=== PATIENT | female | born 1935 | race Caucasian/White ===

== ENCOUNTER 2020-06-28 04:58 | Outpatient (CLI) | payer MEDICARE, OTHER | END 2020-06-28 04:59 | disposition critical access hospital (66) | LOC: EMS 04:58 | PROVIDERS: ATTEND Emergency Medicine | DX: M79.604 Pain in right leg (principal); R22.41 Localized swelling, mass and lump, right lower limb | CPT/HCPCS: A0425; A0429 ==

== ENCOUNTER 2020-06-28 05:14 | Inpatient (IN) | payer MEDICARE, OTHER ==
--- NOTE | 2020-06-28 05:35 | ED Physician Documentation ---
History of Present Illness - Stated complaint Stated Complaint: R LEG SWELLING - Chief complaint Chief Complaint: Ext Problem - History obtained from History obtained from: EMS - History of Present Illness Timing: Today - Additonal information Additional information: HARMAN from [facility]. Patient has dementia and is thus unable to contribute to HPI/ROS. Per staff at [facility], patient was noted to be in NAD at approximately 1 AM on routine check which included turning patient. At approximately 4 AM this morning, she was again checked on as per routine and found to have swelling of RLE and pain with movement. There was no report of recent injury or fall. Review of Systems Unable to obtain: Dementia PD PAST MEDICAL HISTORY - Past Medical History Past Medical History: Yes Neuro: Dementia - Present Medications Home Medications: Ambulatory Orders Medication Instructions Recorded Confirmed Donepezil HCl [Aricept] 10 mg PO HS 06/28/20 06/28/20 Furosemide [Lasix] 40 mg PO DAILY 06/28/20 06/28/20 OLANZapine [Zyprexa] 2.5 mg PO HS 06/28/20 06/28/20 Oxybutynin Chloride [Ditropan Xl] 10 mg PO 06/28/20 Oxybutynin Chloride [Ditropan Xl] 10 mg PO DAILY 06/28/20 06/28/20 Potassium Chloride 20 meq PO 06/28/20 - Allergies Allergies/Adverse Reactions: Allergies Allergy/AdvReac Type Severity Reaction Status Date / Time No Known Drug Allergies Allergy Verified 06/28/20 05:39 PD ED PE NORMAL - Vitals Vital signs reviewed: Yes - General General: No acute distress (NAD at rest, obvious painful distress with RLE exam (palpation; the limb is not moved during exam)), Well developed/nourished, Other (awake, alert, confused; answers are gibberish. ) - HEENT HEENT: Atraumatic - Cardiac Cardiac: RRR, No murmur - Respiratory Respiratory: No respiratory distress, Clear bilaterally - Abdomen Abdomen: Soft, Non tender - Derm Derm: Normal color, Warm and dry PD ED PE EXPANDED - Extremities Extremities: Pedal Pulses Present, Other (entire RLE from hip to toes is circumferentially swollen. the RLE is foreshortened and externally rotated. there is no erythema nor abnormal warmth/coolness to touch. obvious painful distress with palpation of proximal thigh) Results - Vitals Vitals: Vital Signs - 24 hr 06/28/20 06/28/20 05:24 08:39 Temperature 36.4 C L 36.4 C L Heart Rate 71 71 Respiratory 18 18 Rate Blood Pressure 198/140 H 198/140 H O2 Saturation 100 100 Oxygen O2 Source Room air - Labs Labs: Laboratory Tests 06/28/20 06/28/20 06:12 06:12 WBC 10.0 RBC 4.54 Hgb 12.8 Hct 39.1 MCV 86.1 MCH 28.2 MCHC 32.7 RDW 14.6 Plt Count 234 MPV 9.1 Neut # (Auto) 7.7 H Lymph # (Auto) 1.4 L Sampson # (Auto) 0.7 Eos # (Auto) 0.1 Baso # (Auto) 0.0 Absolute Nucleated RBC 0.00 Nucleated RBC % 0.0 Sodium 137 Potassium 3.2 L Chloride 101 Carbon Dioxide 26 Anion Gap 10.0 BUN 16 Creatinine 0.5 Estimated GFR (MDRD) 117 Glucose 130 H Calcium 8.8 Total Bilirubin 0.8 AST 18 ALT 14 Alkaline Phosphatase 99 Total Protein 6.8 Albumin 3.8 Globulin 3.0 Albumin/Globulin Ratio 1.3 Lipase 32 PD MEDICAL DECISION MAKING - ED course Complexity details: reviewed results, re-evaluated patient, considered differential ED course: right proximal femoral fracure with 100 % displacement and 45 degree angulation on xrays. orthopedic surgeon consulted (Dr. Vera); he subsequently evaluated patient in ED and contacted POA. He requests hospitalist for admission. D/W Dr. Sparks, will admit to hospitalist service Departure - Departure Disposition: [facility] DC/Xfer Clinical Impression: Right femoral fracture Qualifiers: Encounter type: initial encounter Femur location: shaft Fracture type: closed Fracture morphology: spiral Fracture alignment: displaced Qualified Code(s): S72.341A - Displaced spiral fracture of shaft of right femur, initial encounter for closed fracture Condition: Stable
[2020-06-28 06:14] LABS: BASOPHILS % (AUTO) 0.3 %; EOSINOPHILS # (AUTO) 0.1 10^3/uL (0.0-0.7); EOSINOPHILS % (AUTO) 0.8 %; HGB - HEMOGLOBIN 12.8 g/dL (12.0-16.0); LYMPHOCYTES # (AUTO) 1.4 10^3/uL (1.5-3.5); LYMPHOCYTES % (AUTO) 14.2 %; MEAN CORPUSCULAR HEMOGLOBIN 28.2 pg (27.0-31.0); MEAN CORPUSCULAR HGB CONC 32.7 g/dL (32.0-36.0); MEAN CORPUSCULAR VOLUME 86.1 fL (81.0-99.0); MEAN PLATELET VOLUME 9.1 fL (7.9-10.8); MONOCYTES # (AUTO) 0.7 10^3/uL (0.0-1.0); MONOCYTES % (AUTO) 6.7 %; NEUTROPHILS # (AUTO) 7.7 10^3/uL (1.5-6.6); NEUTROPHILS % (AUTO) 77.7 %; PLT - PLATELET COUNT 234 10^3/uL (130-450); RED BLOOD COUNT 4.54 10^6/uL (4.20-5.40); RED CELL DISTRIBUTION WIDTH 14.6 % (12.0-15.0)
[2020-06-28 06:27] LABS: ALBUMIN 3.8 g/dL (3.2-5.5); ALBUMIN/GLOBULIN RATIO 1.3 (1.0-2.2); BILIRUBIN,TOTAL 0.8 mg/dL (0.2-1.0); CALCIUM 8.8 mg/dL (8.5-10.3); CREATININE 0.5 mg/dL (0.4-1.0); TOTAL PROTEIN 6.8 g/dL (6.7-8.2)
[2020-06-28] MEDS ORDERED: MORPHINE 2 MG/ML CARPUJECT IVP STA ×2 (07:45→08:46)
--- NOTE | 2020-06-28 08:12 | XRAY Report ---
PROCEDURE: Hip w/Pelvis 2-3V RT INDICATIONS: RLE swelling, pain, tenderness TECHNIQUE: AP pelvis with lateral view(s) of the bilateral hip(s). COMPARISON: None. FINDINGS: Bones: No dislocations. Pelvic ring appears intact. No suspicious bony lesions. Note is made of a diagonal fracture of the proximal diaphysis of the right femur. Soft tissues: The visualized bowel g as pattern is normal. No suspicious soft tissue calcifications. IMPRESSION: Right femur fracture along the diaphysis, diagonal, proximally. No additional trauma fou nd. Moderately severe left hip joint osteoarthritis noted. Reviewed by: Daron Whittaker MD on 06/28/2020 8:11 AM PST Approved by: Daron Whittaker MD on 06/28/2020 8:11 AM PST Station ID: [id number]
--- NOTE | 2020-06-28 08:34 | SURGERY HX AND PHYSICAL(T) ---
Surgical History & Physical - Chief Complaint/HPI Chief Complaint: Right leg deformity History of Present Illness: Mrs. Coyle is a 85 yo female with dementia and polio who was found down with a right leg deformity. No other issue. 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 Urinary: Incontinence Musculoskeletal: None Blood Disorders: None Psychiatric: None Smoking Status: Unknown if ever smoked - Home Meds and Allergies Home Medications: Donepezil HCl [Aricept] 10 mg PO HS 06/28/20 Furosemide [Lasix] 40 mg PO DAILY 06/28/20 OLANZapine [Zyprexa] 2.5 mg PO HS 06/28/20 Oxybutynin Chloride [Ditropan Xl] 10 mg PO 06/28/20 Oxybutynin Chloride [Ditropan Xl] 10 mg PO DAILY 06/28/20 Potassium Chloride 20 meq PO 06/28/20 Allergies/Adverse Reactions: Allergies Allergy/AdvReac Type Severity Reaction Status Date / Time No Known Drug Allergies Allergy Verified 06/28/20 05:39 - Vital Signs Heart Rate: 71 Blood Pressure: 198/140 Temperature: 36.4 C Respiratory Rate: 18 O2 Saturation: 100 Weight (kg): 54.431 kg Height: 5 ft 5 in - Physical Exam General Appearance: positive: Anxious Eyes Bilatera: positive: Normal inspection ENT: positive: ENT inspection nml Neck: positive: Nml inspection Respiratory: positive: Breath sounds nml Cardiovascular: positive: Regular rate & rhythm Peripheral Pulses: positive: 2+ Abdomen: positive: Non-tender Skin: positive: Color nml Extremities: positive: Other (Right leg- short, externally rotated, skin intact, 2+ pulses) Neurologic/Psychiatric: positive: Disoriented to person, Disoriented to place, Disoriented to time - Patient Review Patient Review: Problems were reviewed with the patient during this visit. Medications were reviewed with the patient during this visit. Allergies were reviewed this patient during this visit. Pertinent Tests Reviewed: All pertitent test for this patient were reviewed. - Assessment & Plan Assessment and Plan: Right femoral fracture Plan To OR today for IM nail. Consent obtained from POA. Risks and benefits explained which include nonunion, malunion, hardware failure, rotational deformity.
[2020-06-28] MEDS ORDERED: hydrALAZINE INJ 20 MG/ML VIAL IVP PRN (10:30)
[2020-06-28] MEDS ORDERED: ONDANSETRON 4 MG/2 ML VIAL IVP PRN ×3 (10:32→18:40)
[2020-06-28] MEDS ORDERED: MORPHINE 2 MG/ML CARPUJECT IVP PRN ×3 (10:32→18:40)
[2020-06-28] MEDS ORDERED: oxyCODONE 5 MG TABLET PO PRN ×2 (10:32→18:40)
[2020-06-28] MEDS ORDERED: SODIUM CHLORIDE FLUSH 0.9% 10 ML SYRINGE IVP PRN ×2 (10:32→18:40)
[2020-06-28] MEDS ORDERED: ACETAMINOPHEN 325 MG TABLET PO PRN ×2 (10:32→18:40)
--- NOTE | 2020-06-28 10:40 | HISTORY & PHYSICAL EXAMINATION ---
Chief Complaint - Chief Complaint Chief Complaint: fall History of Present Illness - Admitted From Admitted From:: s/p surgery - [facility] obtained from: ER report and [employer] Exam Limitations: pt could not provide any medical hx due to her dementia - History of Present Illness HPI Comment/Other: This is a 85-year-old female with past medical history significant for dementia, urinary incontinence, she is living at [facility] in [place].Per ER report, Unfortunately patient could not provide any H&P due to her advanced dementia. Per ER report, staff in [facility] reported patient was noted to be no abnormality detected at approximately 1 AM on routine check by [facility] staff. At approximately 4 AM this morning, patient was again checked as per routine, pt was found to have swelling of right lower extremity, and pain by right leg movement. There was no report for recent injury or fall. Patient's routine laboratory test show patient had potassium 3.2 Otherwise unremarkable. In ER, Patient is afebrile, patient initially had hypertension, now her blood pressure become controlled. Pt was directly from ER to operation room. Medical team was consulted for medical management of S/P of right hip repair. New PLOST show DNR/DNI with Limited intervention. History - Past Medical History Cardiovascular: reports: None Respiratory: reports: None Neuro: reports: Dementia Endocrine/Autoimmune: reports: None GI: reports: None CIRCULATION DIRECTOR: reports: None : reports: Incontinence HEENT: reports: None Psych: reports: None Musculoskeletal: reports: None Derm: reports: None MRSA Hx?: No - Family & Social History Family History Comment/Other: Patient has history of advanced dementia, she could not provide family and social history - POLST Patient has POLST: Yes Meds/Allgy - Home Medications Home Medications: Ambulatory Orders Medication Instructions Recorded Confirmed Albuterol Sulf [Ventolin Hfa 2 puffs INH Q4H PRN 06/28/20 Inhaler] Donepezil HCl [Aricept] 10 mg PO HS 06/28/20 06/28/20 Furosemide [Lasix] 40 mg PO DAILY 06/28/20 06/28/20 OLANZapine [Zyprexa] 2.5 mg PO HS 06/28/20 06/28/20 Oxybutynin Chloride [Ditropan Xl] 10 mg PO DAILY 06/28/20 Oxybutynin Chloride [Ditropan Xl] 10 mg PO DAILY 06/28/20 06/28/20 Potassium Chloride 40 meq PO DAILY 06/28/20 - Allergies Allergies/Adverse Reactions: Allergies Allergy/AdvReac Type Severity Reaction Status Date / Time No Known Drug Allergies Allergy Verified 06/28/20 05:39 Review of Systems - Other Findings Other Findings: Patient has history of advanced dementia, she could not answer ROS Prior Level of Functionality: Patient has history of advanced dementia, pt is living at [facility] Exam - Vital Signs Vital Signs: Vital Signs x48h Temp Pulse Resp BP Pulse Ox 06/28/20 10:20 90 18 178/75 H 100 06/28/20 08:39 36.4 C L 71 18 198/140 H 100 06/28/20 05:24 36.4 C L 71 18 198/140 H 100 - Physical Exam General Appearance: positive: No acute distress, Alert. negative: Lethargic Eyes Bilateral: positive: Normal inspection, PERRL, No lid inflammation ENT: positive: ENT inspection nml, No signs of dehydration. negative: Purulent nasal drainage Neck: positive: Nml inspection, Trachea midline. negative: Thyromegaly, Tracheal deviation Respiratory: positive: Chest non-tender, No respiratory distress. negative: Wheezes, Rales Cardiovascular: positive: Regular rate & rhythm, No murmur. negative: Tachycardia, Bradycardia, Systolic murmur, Diastolic murmur Peripheral Pulses: positive: 2+ Abdomen: positive: Non-tender, Nml bowel sounds, No distention. negative: Tenderness, Guarding, Rebound Back: positive: Nml inspection Skin: positive: Color nml, Warm, Dry. negative: Cyanosis, Diaphoresis, Pallor Extremities: positive: Nml appearance. negative: Calf tenderness Neurologic/Psychiatric: positive: Sensation nml. negative: Weakness, Sensory loss, Facial droop, Slurred/abnml speech Conclusion/Plan - Problem List (1) Right femoral fracture Conclusion/Plan: pt was directly from ER to operation room. pt is for Status post of right hip repair medical management in medical floor, DVT prophylaxis per surgeon, Continue pain control, PT and OT evaluation and treatment, Consult with social work for safety disposition, will check H&H to monitor HGB Qualifiers: Encounter type: initial encounter Femur location: shaft Fracture type: closed Fracture morphology: spiral Fracture alignment: displaced Qualified Code(s): S72.341A - Displaced spiral fracture of shaft of right femur, initial encounter for closed fracture (2) Dementia Conclusion/Plan: will resume home meds Aricept, and yprexa, continue nurse care and support, feed pt as needed (3) Urinary incontinence Conclusion/Plan: continue Justin today, then D/C Justin on tomorrow, continue nurse and staff care (4) HTN (hypertension) Conclusion/Plan: Patient show hypertension in admission, now her blood pressure is in the control, we will add hydralazine IV as needed (5) Hypokalemia Conclusion/Plan: pt's potassium is 3.2, will replace, and lab monitor - Lab Results Fish Bones: 06/29/20 04:44 06/29/20 04:44 Core Measures - Anticipated LOS I expect patient to be DC'd or transferred within 96 hours.: Yes - DVT/VTE - Prophylaxis VTE/DVT Device ordered at admit?: Yes VTE/DVT Prophylaxis med ordered at admit?: Yes - Stroke - Rehab Assessment Rehab services assessment to be ordered?: Yes - AMI - Statin at Admit Aspirin Prescribed on Admit: Yes
[2020-06-28] MEDS ORDERED: SODIUM CHLORIDE 0.9% 1,000 ML IV SCH (11:00)
--- NOTE | 2020-06-28 11:02 | OPERATIVE REPORT ---
Operative Report - General Admit Date: 06/28/20 Planned Procedure: Right femoral intramedullary nail Pre-Op Diagnosis: Right proximal femur spiral fracture Procedure Performed: Right femoral cephalomedullary nail - Procedure Note Primary Surgeon: Denny Vera M.D. Secondary Surgeon: Juan Carlos Oconnell PA-C Anesthesia Technique: General mask Pathology: none Estimated Blood Loss (mL): 200 Urine Output (mL): 100 Indications: femur fracure Findings: femur fracture Complications: None - Other Other Information/Narrative: Hip Fracture Indications Agnes Greenfield is a 86 y.o. female who fell at her custodial and immediately experienced pain in the right leg. She was brought to the ER, where physical examination and x-rays documented a right proximal femur fracture. After discussion with the patient and family the patient was admitted and prepared for IM nail of their fracture. Disposition The patient was taken to PACU in good condition. [employer] long femoral nail 11X40, 85/80 lag screws Procedure The patient was seen in the Holding area. The risks, benefits, complications, treatment options, and expected outcomes were reviewed with the family The risks and potential complications of their problem and purposed treatment include but are not limited to infection, nerve injury, vascular injury, persistent pain, potential skin necrosis, deep vein thrombosis, possible pulmonary embolus, complications of the anesthetics, and failure of the implant. The family concurred with the proposed plan. The site of surgery was properly noted/marked and confirmed with the family. The patient was taken to the operating room. In the operating room anesthesia was administered. The patient received 2 grams of IV Ancef as a pre-operative antibiotic. A Justin catheter was already placed. The patient was then placed on the Anita fracture table and the proximal hip fracture was reduced under fluoroscopy. SCD's were placed on the contralateral leg to reduce the risk of DVT. The operative hip and leg were then prepped and draped in a sterile fashion. A Time Out was held and the patient identified as Shazia Coyle and the procedure verified as Right IM nail of Proximal Femur Fracture. Through a lateral skin incision, the fracture was identified and reduced with a bone clamp under fluoro. Through a posterior lateral skin incision, the trochanteric entry point was identified.An starting pin was then placed appropiately under fluoroscopic guidance up to the lesser trochanter. The starting reamer was then placed up to the lesser trochanter. The ball tip guide wire was then tapped further through the fracture site to the physis of the knee. Stepped reamers enlarged the femoral canal up to 13 mm. We measured for the length of the nail. We were able to reduce the fracture and placed the nail without difficulty. We locked the nail with two proximal cephalomedullary lag screws and two distal locking screws. Reduction of the fracture and screw placement were all confirmed by fluoroscopy and noted to be in good position. SHe had osteoportic bone The wound was then copiously irrigated. Hemostasis was obtained using the Bovie cautery.Closure was performed with an interrupted 2-0 Vicryl and the skin was approximated with with blake. A sterile dressing was applied and the patient was transferred to PACU. Instrument, sponge, and needle counts were correct prior to closure and at the conclusion of the case. Due to the complexity of fracture and osteoporosis, a PA was needed throught out the case to hold instruments and reduce fracture. Without his help, operative time and surgical complexity would increase.
[2020-06-28 11:14] LABS: C. PNEUMONIAE- RESP PCR PANEL NOT DETECTED
--- NOTE | 2020-06-28 11:39 | ANESTHESIA ---
Pre-Anesthesia VS, & Labs - Diagnosis right hip fracture - Procedure ORIF right hip Vital Signs: Temp Pulse Resp BP Pulse Ox 36.4 C L 90 18 178/75 H 100 06/28/20 08:39 06/28/20 10:20 06/28/20 10:20 06/28/20 10:20 06/28/20 10:20 Height: 5 ft 5 in Weight (kg): 54.431 kg Body Mass Index: 20.0 BMI Classification: Healthy weight - NPO >8 hours - Is Patient ?: No - Lab Results Current Lab Results: Laboratory Tests 06/28/20 10:44: Troponin I High Sens 3.6 06/28/20 06:12: Sodium 137, Potassium 3.2 L, Chloride 101, Carbon Dioxide 26, Anion Gap 10.0, BUN 16, Creatinine 0.5, Estimated GFR (MDRD) 117, Glucose 130 H, Calcium 8.8, Total Bilirubin 0.8, AST 18, ALT 14, Alkaline Phosphatase 99, Total Protein 6.8, Albumin 3.8, Globulin 3.0, Albumin/Globulin Ratio 1.3, Lipase 32 06/28/20 06:12: WBC 10.0, RBC 4.54, Hgb 12.8, Hct 39.1, MCV 86.1, MCH 28.2, MCHC 32.7, RDW 14.6, Plt Count 234, MPV 9.1, Neut # (Auto) 7.7 H, Lymph # (Auto) 1.4 L, [place] # (Auto) 0.7, Eos # (Auto) 0.1, Baso # (Auto) 0.0, Absolute Nucleated RBC 0.00, Nucleated RBC % 0.0 Lab results reviewed: Yes Fish Bones: 06/28/20 06:12 06/28/20 06:12 Home Medications and Allergies Home Medications: Ambulatory Orders Albuterol Sulf [Ventolin Hfa Inhaler] 2 puffs INH Q4H PRN 06/28/20 Donepezil HCl [Aricept] 10 mg PO HS 06/28/20 Furosemide [Lasix] 40 mg PO DAILY 06/28/20 OLANZapine [Zyprexa] 2.5 mg PO HS 06/28/20 Oxybutynin Chloride [Ditropan Xl] 10 mg PO DAILY 06/28/20 Oxybutynin Chloride [Ditropan Xl] 10 mg PO DAILY 06/28/20 Potassium Chloride 40 meq PO DAILY 06/28/20 Active Medications Acetaminophen (Acetaminophen 325 Mg Tablet) 650 mg PO Q4HR PRN PRN Reason: Pain 1 to 4 Enoxaparin Sodium (Enoxaparin 40 Mg/0.4 Ml Syringe) 40 mg SUBQ DAILY [facility] Famotidine (Famotidine 20 Mg Tablet) 20 mg PO BID [facility] Furosemide (Furosemide 40 Mg Tablet) 40 mg PO DAILY [facility] Hydralazine HCl (Hydralazine Inj 20 Mg/Ml Vial) 10 mg IVP Q4H PRN PRN Reason: Hypertensive Emergency Potassium Chloride (Potassium Chloride) 10 meq in 100 mls @ 100 mls/hr IV Q1H [facility] Stop: 06/28/20 14:59 Sodium Chloride (Normal Saline 0.9%) 1,000 mls @ 100 mls/hr IV .Q10H [facility] Morphine Sulfate (Morphine 2 Mg/Ml Carpuject) 2 mg IVP Q2HR PRN PRN Reason: Pain 8 to 10 Non-Formulary Medication (Donepezil Hcl [Aricept]) 10 mg PO HS [facility] Non-Formulary Medication (Olanzapine [Zyprexa]) 2.5 mg PO HS [facility] Non-Formulary Medication (Oxybutynin Chloride [Ditropan Xl]) 10 mg PO DAILY [facility] Ondansetron HCl (Ondansetron 4 Mg/2 Ml Vial) 4 mg IVP Q6HR PRN PRN Reason: Nausea / Vomiting Oxycodone HCl (Oxycodone 5 Mg Tablet) 5 mg PO Q4HR PRN PRN Reason: Pain 5 to 7 Sodium Chloride (Sodium Chloride Flush 0.9% 10 Ml Syringe) 10 ml IVP PRN PRN PRN Reason: NEEDED PER PROVIDER ORDERS Sodium Chloride (Sodium Chloride Flush 0.9% 10 Ml Syringe) 10 ml IVP 0100,0900,1700 [facility] Albuterol Sulf [Ventolin Hfa Inhaler] 2 puffs INH Q4H PRN 06/28/20 Donepezil HCl [Aricept] 10 mg PO HS 06/28/20 Furosemide [Lasix] 40 mg PO DAILY 06/28/20 OLANZapine [Zyprexa] 2.5 mg PO HS 06/28/20 Oxybutynin Chloride [Ditropan Xl] 10 mg PO DAILY 06/28/20 Oxybutynin Chloride [Ditropan Xl] 10 mg PO DAILY 06/28/20 Potassium Chloride 40 meq PO DAILY 06/28/20 Allergies/Adverse Reactions: Allergies Allergy/AdvReac Type Severity Reaction Status Date / Time No Known Drug Allergies Allergy Verified 06/28/20 05:39 Anes History & Medical History - Anesthetic History Anesthesia Complications: reports: No previous complications - Medical History Cardiovascular: reports: None Pulmonary: reports: None Gastrointestinal: reports: None Urinary: reports: Incontinence Neuro: reports: Dementia Musculoskeletal: reports: None Endocrine/Autoimmune: reports: None Blood Disorders: reports: None Skin: reports: None Smoking Status: Unknown if ever smoked - Surgical History Cardiothoracic: Angioplasty (about 10 years ago per daughter) Exam General: Alert Dental: WNL Mallampati classification: II Thyromental Distance: greater than 6 cm Respiratory: Lungs clear Cardiovascular: Regular rate Plan Anesthesia Type: General, Fascia Iliaca Block Consent for Procedure(s) Verified and Reviewed: Yes Code Status: Attempt Resuscitation ASA classification: 2-Mild systemic disease Is this case an emergency?: Yes (urgent)
[2020-06-28] MEDS ORDERED: MIDAZOLAM 2 MG/2 ML VIAL ONE (14:11)
[2020-06-28] MEDS ORDERED: LIDOCAINE-MPF 2% 5 ML VIAL ONE (14:11)
[2020-06-28] MEDS ORDERED: PROPOFOL 200 MG/20 ML VIAL IVP ONE (14:11)
[2020-06-28] MEDS ORDERED: fentaNYL 100 MCG/2 ML VIAL ONE (14:11)
[2020-06-28] MEDS ORDERED: ROPIVACAINE 0.5% PF 20 ML AMPULE ONE (14:26)
[2020-06-28] MEDS ORDERED: ceFAZolin 1 GM VIAL ONE (15:45)
[2020-06-28] MEDS ORDERED: SODIUM CHLORIDE 0.9% 10 ML ONE (15:45)
[2020-06-28] MEDS ORDERED: ePHEDrine 50 MG/ML VIAL IVP ONE (16:16)
[2020-06-28] MEDS ORDERED: PHENYLEPHRINE 10 MG/ML VIAL ONE (16:24)
[2020-06-28] MEDS ORDERED: NALOXONE 0.4 MG/ML VIAL IVP PRN (16:56)
[2020-06-28] MEDS ORDERED: ePHEDrine 50 MG/ML VIAL IVP PRN (16:56)
[2020-06-28] MEDS ORDERED: HYDROmorphone 0.5 MG/0.5 ML SYRINGE IVP PRN (16:56)
[2020-06-28] MEDS ORDERED: ATROPINE ABBOJECT 1 MG/10 ML SYRINGE IVP PRN (16:56)
[2020-06-28] MEDS ORDERED: METOCLOPRAMIDE 10 MG/2 ML VIAL IVP PRN (16:56)
[2020-06-28] MEDS ORDERED: fentaNYL 100 MCG/2 ML VIAL IVP PRN (16:56)
[2020-06-28] MEDS ORDERED: LACTATED RINGERS 1,000 ML IV SCH (17:00)
[2020-06-28] MEDS ORDERED: SEVOFLURANE 250 ML LIQUID INH ONE (17:44)
[2020-06-28] MEDS ORDERED: DOCUSATE SODIUM 100 MG CAPSULE PO PRN (18:40)
[2020-06-28] MEDS ORDERED: PROCHLORPERAZINE 10 MG/2 ML VIAL IVP PRN (18:40)
[2020-06-28] MEDS ORDERED: LACTATED RINGERS 1,000 ML IV ONE (18:51)
[2020-06-28] MEDS: LACTATED RINGERS 1,000 ML IV SCH (19:58)
[2020-06-28] MEDS: SODIUM CHLORIDE FLUSH 0.9% 10 ML SYRINGE IVP SCH (19:58)
--- NOTE | 2020-06-28 20:06 | ANESTHESIA POST OP EVALUATION ---
Anesthesia Post Eval - Post Anesthesia Eval Vitals: Last Vital Signs Temp 36.7 C 06/28/20 19:37 Pulse 92 06/28/20 19:37 Resp 16 06/28/20 19:37 BP 105/54 L 06/28/20 19:37 Pulse Ox 100 06/28/20 19:37 CV Function Including HR & BP: positive: Stable Pain Control: positive: Satisfactory Nausea & Vomiting: positive: Negative Mental Status: positive: Patient Participates Respiratory Status: Airway Patent Hydration Status: Satisfactory Anesthesia Complications: positive: None
[2020-06-28] MEDS ORDERED: OLANZapine ODT 5 MG TABLET TL SCH (21:00)
[2020-06-28] MEDS ORDERED: DONEPEZIL 5 MG TABLET PO SCH (21:00)
--- NOTE | 2020-06-28 21:35 | XRAY Report ---
PROCEDURE: OR C-Arm Procedure INDICATIONS: ORIF RIGHT HIP TECHNIQUE: Multiple intraoperative spot fluoroscopic images of the right femur were obtained in vario us projections. COMPARISON: None. FINDINGS: Spot fluoroscopic images of the right femur demonstrate fixation of the previously seen proximal femo ral diaphyseal fracture with an intramedullary nail. IMPRESSION: Intraoperative images demonstrate internal fixation of the previously seen proximal femoral fracture. Reviewed by: Medardo Sebastian MD on 06/28/2020 9:34 PM [facility] Approved by: Medardo Sebastian MD on 06/28/2020 9:34 PM [facility] Station ID: [id number]
[2020-06-28] MEDS: POTASSIUM CHLOR 10 MEQ/100 ML 10 MEQ/100 ML BAG IV SCH (21:48)
[2020-06-28] MEDS: FAMOTIDINE 20 MG TABLET PO SCH (21:48)
[2020-06-28] MEDS: ceFAZolin 2 GM/50 ML 2 GM/50 ML BAG IV SCH (21:53)
[2020-06-28 22:00] LABS: HGB - HEMOGLOBIN 11.7 g/dL (12.0-16.0)
[2020-06-29] MEDS: SODIUM CHLORIDE FLUSH 0.9% 10 ML SYRINGE IVP SCH ×3 (00:04→17:08)
[2020-06-29] MEDS ORDERED: SODIUM CHLORIDE FLUSH 0.9% 10 ML SYRINGE IVP SCH (01:00)
[2020-06-29 05:40] LABS: BASOPHILS % (AUTO) 0.4 %; EOSINOPHILS # (AUTO) 0.2 10^3/uL (0.0-0.7); EOSINOPHILS % (AUTO) 2.4 %; HGB - HEMOGLOBIN 10.1 g/dL (12.0-16.0); LYMPHOCYTES # (AUTO) 1.5 10^3/uL (1.5-3.5); LYMPHOCYTES % (AUTO) 22.8 %; MEAN CORPUSCULAR HEMOGLOBIN 28.1 pg (27.0-31.0); MEAN CORPUSCULAR HGB CONC 32.5 g/dL (32.0-36.0); MEAN CORPUSCULAR VOLUME 86.4 fL (81.0-99.0); MEAN PLATELET VOLUME 9.7 fL (7.9-10.8); MONOCYTES # (AUTO) 1.1 10^3/uL (0.0-1.0); MONOCYTES % (AUTO) 16.7 %; NEUTROPHILS # (AUTO) 3.9 10^3/uL (1.5-6.6); NEUTROPHILS % (AUTO) 57.4 %; PLT - PLATELET COUNT 214 10^3/uL (130-450); RED CELL DISTRIBUTION WIDTH 14.6 % (12.0-15.0); WHITE BLOOD COUNT 6.7 x10^3/uL (4.8-10.8)
[2020-06-29 06:14] LABS: CALCIUM 8.3 mg/dL (8.5-10.3); CREATININE 0.6 mg/dL (0.4-1.0)
[2020-06-29] MEDS: LACTATED RINGERS 1,000 ML IV SCH ×2 (06:19→17:53)
[2020-06-29] MEDS: ceFAZolin 2 GM/50 ML 2 GM/50 ML BAG IV SCH (06:19)
[2020-06-29] MEDS: POTASSIUM CHLOR 10 MEQ/100 ML 10 MEQ/100 ML BAG IV SCH ×2 (07:08→07:09)
[2020-06-29] MEDS ORDERED: POTASSIUM CHLORIDE 20 MEQ TABLET PO ONE (07:27)
[2020-06-29] MEDS ORDERED: LACTATED RINGERS 1,000 ML IV SCH ×2 (07:32→15:34)
[2020-06-29] MEDS ORDERED: FUROSEMIDE 40 MG TABLET PO SCH (09:00)
[2020-06-29] MEDS ORDERED: ENOXAPARIN 40 MG/0.4 ML SYRINGE SUBQ SCH (09:00)
[2020-06-29] MEDS: FAMOTIDINE 20 MG TABLET PO SCH ×2 (09:19→20:25)
[2020-06-29] MEDS: ASPIRIN EC 81 MG TABLET PO SCH (09:19)
[2020-06-29] MEDS: OLANZapine ODT 5 MG TABLET TL SCH (09:21)
[2020-06-29] MEDS: OXYBUTYNIN CHLORIDE 10 MG PO SCH (09:26)
--- NOTE | 2020-06-29 11:02 | PROVIDER PROGRESS NOTE ---
Subjective - General Admit Date: 06/28/20 Procedure Date: 06/28/20 Post Op Days: 1 Procedure Performed: Right femur Im nail - Review of Systems Wound/Incisions: positive: Dressing dry and intact General: positive: No symptoms HEENT: positive: No symptoms Musculoskeletal: positive: Other (dressing CDI, moves toes, 2+ pulses) - Other Other Information/Narrative: POD#1 Doing well Plan return to [facility]F Bed to chair transfers only follow up in clinic in 2 weeks Objective - Patient Data Vital Signs: Vital Signs x48h Temp Pulse Resp BP BP Pulse Ox 06/29/20 07:49 37.1 C 92 14 139/55 H 97 06/29/20 07:47 37.1 C 92 14 139/55 H 97 06/29/20 04:18 36.5 C 100 20 159/70 H 98 Weight: Weight 06/27/20 06/28/20 06/29/20 23:59 23:59 23:59 Weight (kg) 54.431 kg Intake & Output: Intake and Output Totals x24h 06/27/20 06/28/20 06/29/20 23:59 23:59 23:59 Intake Total 90 1185 Output Total 300 Balance 90 885 - Lab Results Lab Results: 06/29/20 04:44 06/29/20 04:44 Other Lab Results: Lab Results x24hrs 06/29/20 06/29/20 06/28/20 Range/Units 04:44 04:44 21:53 WBC 6.7 (4.8-10.8) x10^3/uL RBC 3.60 L (4.20-5.40) 10^6/uL Hgb 10.1 L 11.7 L (12.0-16.0) g/dL Hct 31.1 L 35.9 L (37.0-47.0) % MCV 86.4 (81.0-99.0) fL MCH 28.1 (27.0-31.0) pg MCHC 32.5 (32.0-36.0) g/dL RDW 14.6 (12.0-15.0) % Plt Count 214 (130-450) 10^3/uL MPV 9.7 (7.9-10.8) fL Neut # (Auto) 3.9 (1.5-6.6) 10^3/uL Lymph # (Auto) 1.5 (1.5-3.5) 10^3/uL [place] # (Auto) 1.1 H (0.0-1.0) 10^3/uL Eos # (Auto) 0.2 (0.0-0.7) 10^3/uL Baso # (Auto) 0.0 (0.0-0.1) 10^3/uL Absolute Nucleated RBC 0.00 x10^3/uL Nucleated RBC % 0.0 /100WBC Sodium 137 (135-145) mmol/L Potassium 3.4 L (3.5-5.0) mmol/L Chloride 102 (101-111) mmol/L Carbon Dioxide 25 (21-32) mmol/L Anion Gap 10.0 (6-13) BUN 16 (6-20) mg/dL Creatinine 0.6 (0.4-1.0) mg/dL Estimated GFR (MDRD) 95 (>89) Glucose 120 H (70-100) mg/dL Calcium 8.3 L (8.5-10.3) mg/dL Troponin I High Sens (2.3-14.8) ng/L Nasal Adenovirus (PCR) Nasal B. parapertussis DNA (PCR) Nasal Coronavir 229E PCR Nasal Coronavir HKU1 PCR Nasal Coronavir NL63 PCR Nasal Coronavir OC43 PCR Nasal Enterovir/Rhinovir PCR Nasal Influenza B PCR Nasal Influenza A PCR Nasal Parainfluen 1 PCR Nasal Parainfluen 2 PCR Nasal Parainfluen 3 PCR Nasal Parainfluen 4 PCR Nasal RSV (PCR) Nasal B.pertussis DNA PCR Nasal C.pneumoniae (PCR) [place] Human Metapneumo PCR Nasal M.pneumoniae (PCR) Nasal SARS-CoV-2 (PCR) 06/28/20 06/28/20 Range/Units 10:44 09:15 WBC (4.8-10.8) x10^3/uL RBC (4.20-5.40) 10^6/uL Hgb (12.0-16.0) g/dL Hct (37.0-47.0) % MCV (81.0-99.0) fL MCH (27.0-31.0) pg MCHC (32.0-36.0) g/dL RDW (12.0-15.0) % Plt Count (130-450) 10^3/uL MPV (7.9-10.8) fL Neut # (Auto) (1.5-6.6) 10^3/uL Lymph # (Auto) (1.5-3.5) 10^3/uL [place] # (Auto) (0.0-1.0) 10^3/uL Eos # (Auto) (0.0-0.7) 10^3/uL Baso # (Auto) (0.0-0.1) 10^3/uL Absolute Nucleated RBC x10^3/uL Nucleated RBC % /100WBC Sodium (135-145) mmol/L Potassium (3.5-5.0) mmol/L Chloride (101-111) mmol/L Carbon Dioxide (21-32) mmol/L Anion Gap (6-13) BUN (6-20) mg/dL Creatinine (0.4-1.0) mg/dL Estimated GFR (MDRD) (>89) Glucose (70-100) mg/dL Calcium (8.5-10.3) mg/dL Troponin I High Sens 3.6 (2.3-14.8) ng/L Nasal Adenovirus (PCR) NOT DETECTED Nasal B. parapertussis DNA (PCR) NOT DETECTED Nasal Coronavir 229E PCR NOT DETECTED Nasal Coronavir HKU1 PCR NOT DETECTED Nasal Coronavir NL63 PCR NOT DETECTED Nasal Coronavir OC43 PCR NOT DETECTED Nasal Enterovir/Rhinovir PCR NOT DETECTED Nasal Influenza B PCR NOT DETECTED Nasal Influenza A PCR NOT DETECTED Nasal Parainfluen 1 PCR NOT DETECTED Nasal Parainfluen 2 PCR NOT DETECTED Nasal Parainfluen 3 PCR NOT DETECTED Nasal Parainfluen 4 PCR NOT DETECTED Nasal RSV (PCR) NOT DETECTED Nasal B.pertussis DNA PCR NOT DETECTED Nasal C.pneumoniae (PCR) NOT DETECTED [place] Human Metapneumo PCR NOT DETECTED Nasal M.pneumoniae (PCR) NOT DETECTED Nasal SARS-CoV-2 (PCR) NOT DETECTED - Current Medications Current Medications: Current Medications Generic Name Dose Route Start Last Admin Trade Name Freq PRN Reason Stop Dose Admin Aspirin 81 mg 06/29/20 09:00 06/29/20 09:19 Aspirin Ec 81 Mg Tablet PO 81 mg DAILY [facility]NI Administration Famotidine 20 mg 06/28/20 21:00 06/29/20 09:19 Famotidine 20 Mg Tablet PO 20 mg BID AVNI Administration Furosemide 40 mg 06/29/20 09:00 06/29/20 09:19 Furosemide 40 Mg Tablet PO 40 mg DAILY [facility]NI Administration Lactated Ringer's 1,000 mls @ 83.3 mls/hr 06/29/20 07:32 06/29/20 07:41 Lr IV 06/30/20 07:30 83.3 mls/hr .Q12H1M [facility]NI Administration Non-Formulary Medication 10 mg 06/29/20 09:00 06/29/20 09:26 Oxybutynin Chloride [Ditropan Xl] PO Not Given DAILY [facility]NI Olanzapine 2.5 mg 06/29/20 09:00 06/29/20 09:21 Olanzapine Odt 5 Mg Tablet TL 2.5 mg DAILY [facility] Administration Sodium Chloride 10 ml 06/28/20 17:00 06/29/20 09:19 Sodium Chloride Flush 0.9% 10 Ml Syringe IVP Not Given 0100,0900,1700 [facility]
--- NOTE | 2020-06-29 11:22 | PROVIDER PROGRESS NOTE ---
Assessment/Plan - Problem List (1) Right femoral fracture Qualifiers: Encounter type: initial encounter Femur location: shaft Fracture type: closed Fracture morphology: spiral Fracture alignment: displaced Qualified Code(s): S72.341A - Displaced spiral fracture of shaft of right femur, initial encounter for closed fracture Assessment/Plan: 06/29 This is day 1 status post of right femur head repair, DVT prophylaxis is per orthopedic surgeon, Continue physical therapist evaluation and treatment, continue pain control, add incentive spirometer pt was directly from ER to operation room. pt is for Status post of right hip repair medical management in medical floor, DVT prophylaxis per surgeon, Continue pain control, PT and OT evaluation and treatment, Consult with social work for safety disposition, will check H&H to monitor HGB (2) Dementia Conclusion/Plan: 06/29 confused as her baseline dementia, continue home meds will resume home meds Aricept, and yprexa, continue nurse care and support, feed pt as needed (3) Urinary incontinence Conclusion/Plan: continue Justin today, then D/C Justin on tomorrow, continue nurse and staff care (4) HTN (hypertension) Conclusion/Plan: Patient show hypertension in admission, now her blood pressure is in the control, we will add hydralazine IV as needed (5) Hypokalemia Conclusion/Plan: 06/29 replace potassium, lab monitor pt's potassium is 3.2, will replace, and lab monitor - Current Meds Current Meds: Current Medications Generic Name Dose Route Start Last Admin Trade Name Freq PRN Reason Stop Dose Admin Aspirin 81 mg 06/29/20 09:00 06/29/20 09:19 Aspirin Ec 81 Mg Tablet PO 81 mg DAILY [facility] Administration Famotidine 20 mg 06/28/20 21:00 06/29/20 09:19 Famotidine 20 Mg Tablet PO 20 mg BID [facility] Administration Furosemide 40 mg 06/29/20 09:00 06/29/20 09:19 Furosemide 40 Mg Tablet PO 40 mg DAILY [facility] Administration Lactated Ringer's 1,000 mls @ 83.3 mls/hr 06/29/20 07:32 06/29/20 07:41 Lr IV 06/30/20 07:30 83.3 mls/hr .Q12H1M [facility] Administration Non-Formulary Medication 10 mg 06/29/20 09:00 06/29/20 09:26 Oxybutynin Chloride [Ditropan Xl] PO Not Given DAILY [facility] Olanzapine 2.5 mg 06/29/20 09:00 06/29/20 09:21 Olanzapine Odt 5 Mg Tablet TL 2.5 mg DAILY [facility] Administration Sodium Chloride 10 ml 06/28/20 17:00 06/29/20 09:19 Sodium Chloride Flush 0.9% 10 Ml Syringe IVP Not Given 0100,0900,1700 [facility] - Lab Result Fish Bone Diagrams: 06/29/20 04:44 06/29/20 04:44 - Additional Planning My Orders: My Active Orders 06/28/20 10:30 hydrALAZINE INJ [Apresoline Inj] 10 mg IVP Q4H PRN 06/28/20 10:32 IO [RC] IOSHIFT Initiate Bowel Care Protocol [RC] .protocol Initiate Line Care Protocol [RC] QSHIFT Initiate Personal Care Protoco [RC] .protocol Telemetry- [RC] Q4HR Code Status [OTHERS] Routine Condition of Patient [OTHERS] Routine DVT Prophylaxis [OTHERS] Routine 06/28/20 10:33 IV Insert [RC] .ONCE 06/28/20 10:34 SCDs [RC] QSHIFT Orthopedics Consult [CONS] Routine 06/28/20 10:35 Evaluate and Treat OT [OT] Routine Evaluate and Treat PT [PT] Routine 06/28/20 17:00 Sodium Chloride Flush 0.9% [Normal Saline Flush 0.9%] 10 ml IVP 0100,0900,1700 06/28/20 21:00 Famotidine [Pepcid] 20 mg PO BID 06/29/20 07:32 Lactated Ringers [Lr] 1,000 ml IV 83.3 mls/hr 06/29/20 09:00 Furosemide [Lasix] 40 mg PO DAILY OLANZapine ODT [ZyPREXA ODT] 2.5 mg TL DAILY Oxybutynin Chloride [Ditropan Xl] 10 mg PO DAILY 06/29/20 21:00 Donepezil [Aricept] 10 mg PO QPM 06/30/20 05:00 BMP - BASIC METABOLIC PANEL [CHEM] DAILYLAB CBC - COMP BLD CT W/AUTO DIFF [HEME] DAILYLAB 07/01/20 05:00 BMP - BASIC METABOLIC PANEL [CHEM] DAILYLAB CBC - COMP BLD CT W/AUTO DIFF [HEME] DAILYLAB 07/02/20 05:00 BMP - BASIC METABOLIC PANEL [CHEM] DAILYLAB CBC - COMP BLD CT W/AUTO DIFF [HEME] DAILYLAB 07/03/20 05:00 BMP - BASIC METABOLIC PANEL [CHEM] DAILYLAB CBC - COMP BLD CT W/AUTO DIFF [HEME] DAILYLAB Subjective - Subjective Nursing Reports: Confused Objective Vital Signs: Vital Signs - 24 hr 06/28/20 06/28/20 06/28/20 12:10 18:50 18:57 Temperature 36.5 C 36.5 C 36.5 C Heart Rate 84 86 84 Heart Rate [ Brachial] Respiratory 16 16 Rate Blood Pressure 148/68 H 153/73 H 155/60 H Blood Pressure [Left Brachial artery] Blood Pressure [Right Ankle] Blood Pressure [Right Brachial artery] O2 Saturation 100 100 06/28/20 06/28/20 06/28/20 19:02 19:05 19:10 Temperature 36.5 C 36.5 C 36.5 C Heart Rate 86 81 91 Heart Rate [ Brachial] Respiratory 16 16 16 Rate Blood Pressure 159/70 H 169/76 H 168/77 H Blood Pressure [Left Brachial artery] Blood Pressure [Right Ankle] Blood Pressure [Right Brachial artery] O2 Saturation 100 100 98 06/28/20 06/28/20 06/28/20 19:14 19:19 19:24 Temperature 36.6 C 36.6 C 36.6 C Heart Rate 84 86 83 Heart Rate [ Brachial] Respiratory 16 16 16 Rate Blood Pressure 168/77 H 153/64 H 146/76 H Blood Pressure [Left Brachial artery] Blood Pressure [Right Ankle] Blood Pressure [Right Brachial artery] O2 Saturation 100 100 100 06/28/20 06/28/20 06/28/20 19:37 20:10 21:10 Temperature 36.7 C 36.5 C Heart Rate Heart Rate [ 92 107 H 105 H Brachial] Respiratory 16 18 18 Rate Blood Pressure Blood Pressure [Left Brachial artery] Blood Pressure 124/55 L [Right Ankle] Blood Pressure 105/54 L [Right Brachial artery] O2 Saturation 100 100 100 06/29/20 06/29/20 06/29/20 00:00 04:18 07:47 Temperature 36.8 C 36.5 C 37.1 C Heart Rate Heart Rate [ 97 100 92 Brachial] Respiratory 18 20 14 Rate Blood Pressure Blood Pressure 139/55 H [Left Brachial artery] Blood Pressure [Right Ankle] Blood Pressure 154/73 H 159/70 H [Right Brachial artery] O2 Saturation 99 98 97 06/29/20 07:49 Temperature 37.1 C Heart Rate Heart Rate [ 92 Brachial] Respiratory 14 Rate Blood Pressure Blood Pressure 139/55 H [Left Brachial artery] Blood Pressure [Right Ankle] Blood Pressure [Right Brachial artery] O2 Saturation 97 Oxygen O2 Source Room air I&O (Last 24 Hrs): Intake and Output Totals x24h 06/27/20 06/28/20 06/29/20 23:59 23:59 23:59 Intake Total 90 1185 Output Total 300 Balance 90 885 General: Alert, No acute distress HEENT: Atraumatic Neck: Supple Lymphatic: no adenopathy Neuro: Alert, Non Focal Cardiovascular: Regular rate, Normal S1, Normal S2 Respiratory: Chest non-tender, No respiratory distress Abdomen: Normal bowel sounds, Soft Extremities: Normal pulses - Results Results: Laboratory Results WBC 6.7 x10^3/uL (4.8-10.8) 06/29/20 04:44 RBC 3.60 10^6/uL (4.20-5.40) L 06/29/20 04:44 Hgb 10.1 g/dL (12.0-16.0) L 06/29/20 04:44 Hct 31.1 % (37.0-47.0) L 06/29/20 04:44 MCV 86.4 fL (81.0-99.0) 06/29/20 04:44 MCH 28.1 pg (27.0-31.0) 06/29/20 04:44 MCHC 32.5 g/dL (32.0-36.0) 06/29/20 04:44 RDW 14.6 % (12.0-15.0) 06/29/20 04:44 Plt Count 214 10^3/uL (130-450) 06/29/20 04:44 MPV 9.7 fL (7.9-10.8) 06/29/20 04:44 Neut # (Auto) 3.9 10^3/uL (1.5-6.6) 06/29/20 04:44 Lymph # (Auto) 1.5 10^3/uL (1.5-3.5) 06/29/20 04:44 [place] # (Auto) 1.1 10^3/uL (0.0-1.0) H 06/29/20 04:44 Eos # (Auto) 0.2 10^3/uL (0.0-0.7) 06/29/20 04:44 Baso # (Auto) 0.0 10^3/uL (0.0-0.1) 06/29/20 04:44 Absolute Nucleated RBC 0.00 x10^3/uL 06/29/20 04:44 Nucleated RBC % 0.0 /100WBC 06/29/20 04:44 Sodium 137 mmol/L (135-145) 06/29/20 04:44 Potassium 3.4 mmol/L (3.5-5.0) L 06/29/20 04:44 Chloride 102 mmol/L (101-111) 06/29/20 04:44 Carbon Dioxide 25 mmol/L (21-32) 06/29/20 04:44 Anion Gap 10.0 (6-13) 06/29/20 04:44 BUN 16 mg/dL (6-20) 06/29/20 04:44 Creatinine 0.6 mg/dL (0.4-1.0) 06/29/20 04:44 Estimated GFR (MDRD) 95 (>89) 06/29/20 04:44 Glucose 120 mg/dL (70-100) H 06/29/20 04:44 Calcium 8.3 mg/dL (8.5-10.3) L 06/29/20 04:44 Total Bilirubin 0.8 mg/dL (0.2-1.0) 06/28/20 06:12 AST 18 IU/L (10-42) 06/28/20 06:12 ALT 14 IU/L (10-60) 06/28/20 06:12 Alkaline Phosphatase 99 IU/L (42-121) 06/28/20 06:12 Troponin I High Sens 3.6 ng/L (2.3-14.8) 06/28/20 10:44 Total Protein 6.8 g/dL (6.7-8.2) 06/28/20 06:12 Albumin 3.8 g/dL (3.2-5.5) 06/28/20 06:12 Globulin 3.0 g/dL (2.1-4.2) 06/28/20 06:12 Albumin/Globulin Ratio 1.3 (1.0-2.2) 06/28/20 06:12 Lipase 32 U/L (22-51) 06/28/20 06:12 Nasal Adenovirus (PCR) NOT DETECTED 06/28/20 09:15 Nasal B. parapertussis DNA (PCR) NOT DETECTED 06/28/20 09:15 Nasal Coronavir 229E PCR NOT DETECTED 06/28/20 09:15 Nasal Coronavir HKU1 PCR NOT DETECTED 06/28/20 09:15 Nasal Coronavir NL63 PCR NOT DETECTED 06/28/20 09:15 Nasal Coronavir OC43 PCR NOT DETECTED 06/28/20 09:15 Nasal Enterovir/Rhinovir PCR NOT DETECTED 06/28/20 09:15 Nasal Influenza B PCR NOT DETECTED 06/28/20 09:15 Nasal Influenza A PCR NOT DETECTED 06/28/20 09:15 Nasal Parainfluen 1 PCR NOT DETECTED 06/28/20 09:15 Nasal Parainfluen 2 PCR NOT DETECTED 06/28/20 09:15 Nasal Parainfluen 3 PCR NOT DETECTED 06/28/20 09:15 Nasal Parainfluen 4 PCR NOT DETECTED 06/28/20 09:15 Nasal RSV (PCR) NOT DETECTED 06/28/20 09:15 Nasal B.pertussis DNA PCR NOT DETECTED 06/28/20 09:15 Nasal C.pneumoniae (PCR) NOT DETECTED 06/28/20 09:15 [place] Human Metapneumo PCR NOT DETECTED 06/28/20 09:15 Nasal M.pneumoniae (PCR) NOT DETECTED 06/28/20 09:15 Nasal SARS-CoV-2 (PCR) NOT DETECTED 06/28/20 09:15 ABX Reporting Has patient been on IV antibiotics over the past 48 hours?: No Current Medications - Current Medications Current Medications: Active Medications Aspirin (Aspirin Ec 81 Mg Tablet) 81 mg PO DAILY [facility] Last Admin: 06/29/20 09:19 Dose: 81 mg Documented by: Docusate Sodium (Docusate Sodium 100 Mg Capsule) 100 mg PO BID PRN PRN Reason: Constipation Donepezil HCl (Donepezil 5 Mg Tablet) 10 mg PO QPM [facility] Famotidine (Famotidine 20 Mg Tablet) 20 mg PO BID [facility] Last Admin: 06/29/20 09:19 Dose: 20 mg Documented by: Furosemide (Furosemide 40 Mg Tablet) 40 mg PO DAILY [facility] Last Admin: 06/29/20 09:19 Dose: 40 mg Documented by: Hydralazine HCl (Hydralazine Inj 20 Mg/Ml Vial) 10 mg IVP Q4H PRN PRN Reason: Hypertensive Emergency Acetaminophen (Ofirmev) 100 mls @ 400 mls/hr IV Q6HR PRN PRN Reason: PAIN Lactated Ringer's (Lr) 1,000 mls @ 83.3 mls/hr IV .Q12H1M [facility] Stop: 06/30/20 07:30 Last Admin: 06/29/20 07:41 Dose: 83.3 mls/hr Documented by: Morphine Sulfate (Morphine 2 Mg/Ml Carpuject) 2 mg IVP Q2HR PRN PRN Reason: PAIN >8 Non-Formulary Medication (Oxybutynin Chloride [Ditropan Xl]) 10 mg PO DAILY [facility] Last Admin: 06/29/20 09:26 Dose: Not Given Documented by: Olanzapine (Olanzapine Odt 5 Mg Tablet) 2.5 mg TL DAILY [facility] Last Admin: 06/29/20 09:21 Dose: 2.5 mg Documented by: Ondansetron HCl (Ondansetron 4 Mg/2 Ml Vial) 4 mg IVP Q6HR PRN PRN Reason: Nausea / Vomiting Oxycodone HCl (Oxycodone 5 Mg Tablet) 5 mg PO Q4HR PRN PRN Reason: PAIN Prochlorperazine Edisylate (Prochlorperazine 10 Mg/2 Ml Vial) 10 mg IVP Q6HR PRN PRN Reason: Nausea / Vomiting Sodium Chloride (Sodium Chloride Flush 0.9% 10 Ml Syringe) 10 ml IVP 0100,09 00,1700 [facility] Last Admin: 06/29/20 09:19 Dose: Not Given Documented by: Sodium Chloride (Sodium Chloride Flush 0.9% 10 Ml Syringe) 10 ml IVP PRN PRN PRN Reason: NEEDED PER PROVIDER ORDERS Albuterol Sulf [Ventolin Hfa Inhaler] 2 puffs INH Q4H PRN 06/28/20 Donepezil HCl [Aricept] 10 mg PO HS 06/28/20 Furosemide [Lasix] 40 mg PO DAILY 06/28/20 OLANZapine [Zyprexa] 2.5 mg PO BID 06/28/20 Oxybutynin Chloride [Ditropan Xl] 10 mg PO DAILY 06/28/20 Potassium Chloride 40 meq PO DAILYWM 06/28/20 Budesonide/Formoterol Fumarate [Symbicort 160-4.5 Mcg Inhaler] 2 puffs INH PRN 06/29/20
[2020-06-29] MEDS: ACETAMINOPHEN 1,000 MG/100 ML 100 ML IV PRN ×2 (11:32→19:11)
--- NOTE | 2020-06-29 14:49 | PHARMACY PROGRESS NOTE ---
- Best Possible Medication History Admit Date and Time: 06/28/20 1337 Processed by: Pharmacy Medication History completed: Yes Patient Interview: Pt unable to participate Secondary Source(s): Facility MAR as ONLY source As the person ultimately responsible for medication therapy, providers are able to order a medication from an existing home medication list in [facility] via the "Reconcile Routine" prior to Confirmation of that medication by production support developer. Such practice is discouraged except when the physician, in their clinical judgment, deems that a medical need exists for a medication without regard to previous use.
[2020-06-29] MEDS: DONEPEZIL 5 MG TABLET PO SCH (20:24)
[2020-06-30] MEDS: SODIUM CHLORIDE FLUSH 0.9% 10 ML SYRINGE IVP SCH ×4 (00:36→23:36)
[2020-06-30] MEDS: ACETAMINOPHEN 1,000 MG/100 ML 100 ML IV PRN ×2 (01:49→08:15)
[2020-06-30 05:39] LABS: BASOPHILS % (AUTO) 0.3 %; EOSINOPHILS % (AUTO) 0.3 %; LYMPHOCYTES # (AUTO) 1.3 10^3/uL (1.5-3.5); LYMPHOCYTES % (AUTO) 18.2 %; MEAN CORPUSCULAR HEMOGLOBIN 27.5 pg (27.0-31.0); MEAN CORPUSCULAR HGB CONC 31.4 g/dL (32.0-36.0); MEAN CORPUSCULAR VOLUME 87.8 fL (81.0-99.0); MEAN PLATELET VOLUME 10.1 fL (7.9-10.8); MONOCYTES # (AUTO) 1.1 10^3/uL (0.0-1.0); MONOCYTES % (AUTO) 14.4 %; NEUTROPHILS # (AUTO) 4.9 10^3/uL (1.5-6.6); NEUTROPHILS % (AUTO) 66.4 %; PLT - PLATELET COUNT 179 10^3/uL (130-450); RED BLOOD COUNT 3.27 10^6/uL (4.20-5.40); RED CELL DISTRIBUTION WIDTH 14.9 % (12.0-15.0); WHITE BLOOD COUNT 7.4 x10^3/uL (4.8-10.8)
[2020-06-30 06:05] LABS: CALCIUM 8.2 mg/dL (8.5-10.3); CREATININE 0.4 mg/dL (0.4-1.0)
[2020-06-30 07:34] LABS: ABSOLUTE RETICS # AUTO 0.042 10^6/uL (0.020-0.110); RED BLOOD COUNT 3.21 10^6/uL (4.20-5.40)
[2020-06-30] MEDS: LACTATED RINGERS 1,000 ML IV SCH (07:54)
[2020-06-30 07:58] LABS: % IRON SATURATION 5 % (20-50); IRON 10 ug/dL (28-170); TOTAL IRON BINDING CAPACITY 206 ug/dL (250-450); TRANSFERRIN 147 mg/dL (192-382)
[2020-06-30] MEDS ORDERED: POTASSIUM CHLOR 10 MEQ/100 ML 10 MEQ/100 ML BAG IV SCH (08:00)
[2020-06-30 08:04] LABS: FERRITIN 117.4 ng/mL (11.0-306.8)
[2020-06-30] MEDS ORDERED: FERROUS SULFATE 325 MG TABLET PO SCH (08:04)
[2020-06-30] MEDS: POTASSIUM CHLORIDE 20 MEQ TABLET PO SCH ×3 (08:06→16:47)
[2020-06-30] MEDS: ASPIRIN EC 81 MG TABLET PO SCH (08:07)
[2020-06-30] MEDS: FAMOTIDINE 20 MG TABLET PO SCH ×2 (08:07→20:05)
[2020-06-30] MEDS: OLANZapine ODT 5 MG TABLET TL SCH (08:08)
[2020-06-30] MEDS: polyethylene glycoL 3350 17 GM PACKET PO SCH (08:09)
[2020-06-30] MEDS ORDERED: CYANOCOBALAMIN 1,000 MCG/ML VIAL IM ONE (08:17)
[2020-06-30] MEDS: ENOXAPARIN 40 MG/0.4 ML SYRINGE SUBQ SCH (08:19)
[2020-06-30] MEDS: OXYBUTYNIN CHLORIDE 10 MG PO SCH (08:20)
--- NOTE | 2020-06-30 10:37 | PROVIDER PROGRESS NOTE ---
Assessment/Plan - Problem List (1) Right femoral fracture Qualifiers: Encounter type: initial encounter Femur location: shaft Fracture type: closed Fracture morphology: spiral Fracture alignment: displaced Qualified Code(s): S72.341A - Displaced spiral fracture of shaft of right femur, initial encounter for closed fracture Assessment/Plan: 06/30 This is day 2 status post of right femur head repair. Called and left message to YOVANY Oconnell for clarifying of DVT prophylaxis. Continue physical therapy evaluation and treatment, continue pain control, Per Social work patient is planned to DC all Friday. PT report pt is difficult to followup the command to do physical therapy due to pt's advanced dementia. Based on pt's poor quality of life, consult with palliative care for pt's further management. 06/29 This is day 1 status post of right femur head repair, DVT prophylaxis is per orthopedic surgeon, Continue physical therapist evaluation and treatment, continue pain control, add incentive spirometer pt was directly from ER to operation room. pt is for Status post of right hip repair medical management in medical floor, DVT prophylaxis per surgeon, Continue pain control, PT and OT evaluation and treatment, Consult with social work for safety disposition, will check H&H to monitor HGB (2) Dementia Conclusion/Plan: 06/29 confused as her baseline dementia, continue home meds will resume home meds Aricept, and yprexa, continue nurse care and support, feed pt as needed (3) Urinary incontinence Conclusion/Plan: 06/30 d/c dobbins already. continue Dobbins today, then D/C Dobbins on tomorrow, continue nurse and staff care (4) HTN (hypertension) Conclusion/Plan: Patient show hypertension in admission, now her blood pressure is in the control, we will add hydralazine IV as needed (5) Hypokalemia Conclusion/Plan: 06/30 K is 2.9 today, placed K and lab monitor 06/29 replace potassium, lab monitor pt's potassium is 3.2, will replace, and lab monitor (6)anemia 06/30 Hemoglobin is 9 today. Anemia study show patient had iron deficiency and B 12 deficiency, Patient also just had right hip repair surgery, Patient likely have acute blood loss As well. Iron and B12 was give the patient. Follow-up laboratory clerk - Current Meds Current Meds: Current Medications Generic Name Dose Route Start Last Admin Trade Name Freq PRN Reason Stop Dose Admin Aspirin 81 mg 02/18/21 09:00 06/30/20 08:07 Aspirin Ec 81 Mg Tablet PO 81 mg DAILY AVNI Administration Donepezil HCl 10 mg 06/29/20 21:00 06/29/20 20:24 Donepezil 5 Mg Tablet PO Not Given QPM AVNI Enoxaparin Sodium 40 mg 06/30/20 09:00 06/30/20 08:19 Enoxaparin 40 Mg/0.4 Ml Syringe SUBQ 40 mg DAILY AVNI Administration Famotidine 20 mg 06/28/20 21:00 06/30/20 08:07 Famotidine 20 Mg Tablet PO 20 mg BID AVNI Administration Ferrous Sulfate 325 mg 06/30/20 08:04 06/30/20 08:42 Ferrous Sulfate 325 Mg Tablet PO 325 mg BIDWM AVNI Administration Lactated Ringer's 1,000 mls @ 75 mls/hr 06/29/20 17:39 06/30/20 07:54 Lr IV 06/30/20 20:18 75 mls/hr .[id number] AVNI Administration Non-Formulary Medication 10 mg 06/29/20 09:00 06/30/20 08:20 Oxybutynin Chloride [Ditropan Xl] PO Not Given DAILY AVNI Olanzapine 2.5 mg 06/29/20 09:00 06/30/20 08:08 Olanzapine Odt 5 Mg Tablet TL 2.5 mg DAILY AVNI Administration Polyethylene Glycol 17 gm 06/30/20 09:00 06/30/20 08:09 Polyethylene Glycol 3350 17 Gm Packet PO 17 gm DAILY AVNI Administration Potassium Chloride 40 meq 06/30/20 08:00 06/30/20 08:06 Potassium Chloride 20 Meq Tablet PO 06/30/20 17:01 40 meq TIDWM AVNI Administration Sodium Chloride 10 ml 06/28/20 17:00 06/30/20 08:47 Sodium Chloride Flush 0.9% 10 Ml Syringe IVP Not Given 0100,0900,1700 AVNI - Lab Result Fish Bone Diagrams: 06/30/20 04:08 06/30/20 04:08 - Additional Planning My Orders: My Active Orders 06/29/20 17:39 Lactated Ringers [Lr] 1,000 ml IV 75 mls/hr 06/29/20 21:00 Donepezil [Aricept] 10 mg PO QPM 06/30/20 Palliative Care Consult [CONS] Routine 06/30/20 08:04 Ferrous Sulfate [Feosol] 325 mg PO BIDWM 06/30/20 09:00 Enoxaparin [Lovenox] 40 mg SUBQ DAILY polyethylene glycoL 3350 [Miralax] 17 gm PO DAILY 06/30/20 14:00 Acetaminophen [Tylenol] 500 mg PO Q4HR PRN 07/01/20 05:00 BMP - BASIC METABOLIC PANEL [CHEM] DAILYLAB CBC - COMP BLD CT W/AUTO DIFF [HEME] DAILYLAB 07/02/20 05:00 BMP - BASIC METABOLIC PANEL [CHEM] DAILYLAB CBC - COMP BLD CT W/AUTO DIFF [HEME] DAILYLAB 07/03/20 05:00 BMP - BASIC METABOLIC PANEL [CHEM] DAILYLAB CBC - COMP BLD CT W/AUTO DIFF [HEME] DAILYLAB Subjective - Subjective Nursing Reports: Confused Objective Vital Signs: Vital Signs - 24 hr 06/29/20 06/29/20 06/29/20 11:00 13:00 16:03 Temperature 37.2 C 36.9 C Heart Rate Heart Rate [ 90 88 Brachial] Heart Rate [ 92 Sitting] Heart Rate [ 82 Supine] Respiratory 16 16 Rate Blood Pressure 140/44 H [Left Ankle] Blood Pressure 93/47 L [Left Brachial artery] Blood Pressure [Right Ankle] Blood Pressure [Right Brachial artery] Blood Pressure 129/103 H [Sitting] Blood Pressure 141/64 H [Supine] O2 Saturation 98 99 06/29/20 06/30/20 06/30/20 19:51 00:52 05:00 Temperature 37.5 C 36.8 C 36.7 C Heart Rate Heart Rate [ 101 H 92 79 Brachial] Heart Rate [ Sitting] Heart Rate [ Supine] Respiratory 16 18 18 Rate Blood Pressure 131/99 H [Left Ankle] Blood Pressure [Left Brachial artery] Blood Pressure 131/49 H [Right Ankle] Blood Pressure 139/61 H [Right Brachial artery] Blood Pressure [Sitting] Blood Pressure [Supine] O2 Saturation 97 97 97 06/30/20 06/30/20 07:39 10:03 Temperature 36.9 C 36.9 C Heart Rate 77 Heart Rate [ 77 Brachial] Heart Rate [ Sitting] Heart Rate [ Supine] Respiratory 16 16 Rate Blood Pressure [Left Ankle] Blood Pressure [Left Brachial artery] Blood Pressure [Right Ankle] Blood Pressure 144/60 H [Right Brachial artery] Blood Pressure [Sitting] Blood Pressure [Supine] O2 Saturation 97 97 Oxygen O2 Source Room air I&O (Last 24 Hrs): Intake and Output Totals x24h 06/28/20 06/29/20 06/30/20 23:59 23:59 23:59 Intake Total 90 2612.000 1350.00 Output Total 2650 110 Balance 90 -38.000 1240.00 General: Alert, No acute distress HEENT: Atraumatic Neck: Supple Lymphatic: no adenopathy Neuro: Alert, Non Focal Cardiovascular: Regular rate, Normal S1, Normal S2 Respiratory: Chest non-tender, No respiratory distress Abdomen: Normal bowel sounds, Soft Extremities: Normal pulses - Results Results: Laboratory Results WBC 7.4 x10^3/uL (4.8-10.8) 06/30/20 04:08 RBC 3.21 10^6/uL (4.20-5.40) L 06/30/20 04:50 Hgb 9.0 g/dL (12.0-16.0) L 06/30/20 04:08 Hct 28.7 % (37.0-47.0) L 06/30/20 04:08 MCV 87.8 fL (81.0-99.0) 06/30/20 04:08 MCH 27.5 pg (27.0-31.0) 06/30/20 04:08 MCHC 31.4 g/dL (32.0-36.0) L 06/30/20 04:08 RDW 14.9 % (12.0-15.0) 06/30/20 04:08 Plt Count 179 10^3/uL (130-450) 06/30/20 04:08 MPV 10.1 fL (7.9-10.8) 06/30/20 04:08 Reticulocyte % (Auto) 1.30 % (0.5-2.3) 06/30/20 04:50 Neut # (Auto) 4.9 10^3/uL (1.5-6.6) 06/30/20 04:08 Lymph # (Auto) 1.3 10^3/uL (1.5-3.5) L 06/30/20 04:08 [place] # (Auto) 1.1 10^3/uL (0.0-1.0) H 06/30/20 04:08 Eos # (Auto) 0.0 10^3/uL (0.0-0.7) 06/30/20 04:08 Baso # (Auto) 0.0 10^3/uL (0.0-0.1) 06/30/20 04:08 Absolute Nucleated RBC 0.00 x10^3/uL 06/30/20 04:08 Nucleated RBC % 0.0 /100WBC 06/30/20 04:08 Absolute Retic 0.042 10^6/uL (0.020-0.110) 06/30/20 04:50 Sodium 137 mmol/L (135-145) 06/30/20 04:08 Potassium 2.9 mmol/L (3.5-5.0) L 06/30/20 04:08 Chloride 102 mmol/L (101-111) 06/30/20 04:08 Carbon Dioxide 25 mmol/L (21-32) 06/30/20 04:08 Anion Gap 10.0 (6-13) 06/30/20 04:08 BUN 13 mg/dL (6-20) 06/30/20 04:08 Creatinine 0.4 mg/dL (0.4-1.0) 06/30/20 04:08 Estimated GFR (MDRD) 151 (>89) 06/30/20 04:08 Glucose 112 mg/dL (70-100) H 06/30/20 04:08 Calcium 8.2 mg/dL (8.5-10.3) L 06/30/20 04:08 Iron 10 ug/dL (28-170) L 06/30/20 04:50 TIBC 206 ug/dL (250-450) L 06/30/20 04:50 % Saturation 5 % (20-50) L 06/30/20 04:50 Transferrin 147 mg/dL (192-382) L 06/30/20 04:50 Ferritin 117.4 ng/mL (11.0-306.8) 06/30/20 04:50 Total Bilirubin 0.8 mg/dL (0.2-1.0) 06/28/20 06:12 AST 18 IU/L (10-42) 06/28/20 06:12 ALT 14 IU/L (10-60) 06/28/20 06:12 Alkaline Phosphatase 99 IU/L (42-121) 06/28/20 06:12 Lactate Dehydrogenase 140 IU/L (91-225) 06/30/20 04:50 Troponin I High Sens 3.6 ng/L (2.3-14.8) 06/28/20 10:44 Total Protein 6.8 g/dL (6.7-8.2) 06/28/20 06:12 Albumin 3.8 g/dL (3.2-5.5) 06/28/20 06:12 Globulin 3.0 g/dL (2.1-4.2) 06/28/20 06:12 Albumin/Globulin Ratio 1.3 (1.0-2.2) 06/28/20 06:12 Lipase 32 U/L (22-51) 06/28/20 06:12 Vitamin B12 143 pg/mL (180-914) L 06/30/20 04:50 Nasal Adenovirus (PCR) NOT DETECTED 06/28/20 09:15 Nasal B. parapertussis DNA (PCR) NOT DETECTED 06/28/20 09:15 Nasal Coronavir 229E PCR NOT DETECTED 06/28/20 09:15 Nasal Coronavir HKU1 PCR NOT DETECTED 06/28/20 09:15 Nasal Coronavir NL63 PCR NOT DETECTED 06/28/20 09:15 Nasal Coronavir OC43 PCR NOT DETECTED 06/28/20 09:15 Nasal Enterovir/Rhinovir PCR NOT DETECTED 06/28/20 09:15 Nasal Influenza B PCR NOT DETECTED 06/28/20 09:15 Nasal Influenza A PCR NOT DETECTED 06/28/20 09:15 Nasal Parainfluen 1 PCR NOT DETECTED 06/28/20 09:15 Nasal Parainfluen 2 PCR NOT DETECTED 06/28/20 09:15 Nasal Parainfluen 3 PCR NOT DETECTED 06/28/20 09:15 Nasal Parainfluen 4 PCR NOT DETECTED 06/28/20 09:15 Nasal RSV (PCR) NOT DETECTED 06/28/20 09:15 Nasal B.pertussis DNA PCR NOT DETECTED 06/28/20 09:15 Nasal C.pneumoniae (PCR) NOT DETECTED 06/28/20 09:15 Tyrell Human Metapneumo PCR NOT DETECTED 06/28/20 09:15 Nasal M.pneumoniae (PCR) NOT DETECTED 06/28/20 09:15 Nasal SARS-CoV-2 (PCR) NOT DETECTED 06/28/20 09:15 ABX Reporting Has patient been on IV antibiotics over the past 48 hours?: No Current Medications - Current Medications Current Medications: Active Medications Acetaminophen (Acetaminophen 500 Mg Tablet) 500 mg PO Q4HR PRN PRN Reason: Pain or Fever > 38C (100.4F) Aspirin (Aspirin Ec 81 Mg Tablet) 81 mg PO DAILY [facility] Last Admin: 06/30/20 08:07 Dose: 81 mg Documented by: Docusate Sodium (Docusate Sodium 100 Mg Capsule) 100 mg PO BID PRN PRN Reason: Constipation Donepezil HCl (Donepezil 5 Mg Tablet) 10 mg PO QPM [facility] Last Admin: 06/29/20 20:24 Dose: Not Given Documented by: Enoxaparin Sodium (Enoxaparin 40 Mg/0.4 Ml Syringe) 40 mg SUBQ DAILY [facility] Last Admin: 06/30/20 08:19 Dose: 40 mg Documented by: Famotidine (Famotidine 20 Mg Tablet) 20 mg PO BID [facility] Last Admin: 06/30/20 08:07 Dose: 20 mg Documented by: Ferrous Sulfate (Ferrous Sulfate 325 Mg Tablet) 325 mg PO BIDWM [facility] Last Admin: 06/30/20 08:42 Dose: 325 mg Documented by: Hydralazine HCl (Hydralazine Inj 20 Mg/Ml Vial) 10 mg IVP Q4H PRN PRN Reason: Hypertensive Emergency Lactated Ringer's (Lr) 1,000 mls @ 75 mls/hr IV .[id number] [facility] Stop: 06/30/20 20:18 Last Admin: 06/30/20 07:54 Dose: 75 mls/hr Documented by: Morphine Sulfate (Morphine 2 Mg/Ml Carpuject) 2 mg IVP Q2HR PRN PRN Reason: PAIN >8 Non-Formulary Medication (Oxybutynin Chloride [Ditropan Xl]) 10 mg PO DAILY [facility] Last Admin: 06/30/20 08:20 Dose: Not Given Documented by: Olanzapine (Olanzapine Odt 5 Mg Tablet) 2.5 mg TL DAILY [facility] Last Admin: 06/30/20 08:08 Dose: 2.5 mg Documented by: Ondansetron HCl (Ondansetron 4 Mg/2 Ml Vial) 4 mg IVP Q6HR PRN PRN Reason: Nausea / Vomiting Oxycodone HCl (Oxycodone 5 Mg Tablet) 5 mg PO Q4HR PRN PRN Reason: PAIN Polyethylene Glycol (Polyethylene Glycol 3350 17 Gm Packet) 17 gm PO DAILY [facility] Last Admin: 06/30/20 08:09 Dose: 17 gm Documented by: Potassium Chloride (Potassium Chloride 20 Meq Tablet) 40 meq PO TIDWM [facility] Stop: 06/30/20 17:01 Last Admin: 06/30/20 08:06 Dose: 40 meq Documented by: Prochlorperazine Edisylate (Prochlorperazine 10 Mg/2 Ml Vial) 10 mg IVP Q6HR PRN PRN Reason: Nausea / Vomiting Sodium Chloride (Sodium Chloride Flush 0.9% 10 Ml Syringe) 10 ml IVP 0100,0900,1700 [facility] Last Admin: 06/30/20 08:47 Dose: Not Given Documented by: Sodium Chloride (Sodium Chloride Flush 0.9% 10 Ml Syringe) 10 ml IVP PRN PRN PRN Reason: NEEDED PER PROVIDER ORDERS Donepezil HCl [Aricept] 10 mg PO HS 06/28/20 Furosemide [Lasix] 40 mg PO DAILY 06/28/20 OLANZapine [Zyprexa] 2.5 mg PO QPM 06/28/20 Oxybutynin Chloride [Ditropan Xl] 10 mg PO DAILY 06/28/20 Potassium Chloride 40 meq PO DAILYWM 06/28/20 Cholecalciferol (Vitamin D3) [Vitamin D3] 1,000 unit PO DAILY 06/29/20
[2020-06-30] MEDS: CHOLECALCIFEROL 25 MCG TABLET PO SCH (13:08)
[2020-06-30] MEDS: MULTIVITAMIN W/MINERALS TABLET PO SCH (13:09)
--- NOTE | 2020-06-30 13:22 | PROVIDER PROGRESS NOTE ---
Subjective - General Admit Date: 06/28/20 Procedure Date: 06/28/20 Post Op Days: 2 Procedure Performed: Right femur IM nail - Review of Systems Wound/Incisions: positive: Dressing dry and intact Functional Status: positive: 1, 2, 3, 4 General: positive: No symptoms, Other (Pleasantly confused) HEENT: positive: No symptoms Pulmonary: positive: No symptoms Cardiovascular: positive: No symptoms Gastrointestinal: positive: No symptoms Genitourinary: positive: No symptoms Musculoskeletal: positive: Other (dressing CDI, thigh soft) Skin: positive: No symptoms Neurological: Psychiatric: positive: No symptoms All Other Systems: positive: Reviewed and negative Objective - Patient Data Vital Signs: Vital Signs x48h Temp Pulse Pulse Resp BP Pulse Ox 06/30/20 12:07 36.8 C 80 16 133/56 H 98 06/30/20 10:03 36.9 C 77 16 97 06/30/20 07:39 36.9 C 77 16 144/60 H 97 Weight: Weight 06/28/20 06/29/20 06/30/20 23:59 23:59 23:59 Weight (kg) 54.431 kg Intake & Output: Intake and Output Totals x24h 06/28/20 06/29/20 06/30/20 23:59 23:59 23:59 Intake Total 90 2612.000 1350.00 Output Total 2650 110 Balance 90 -38.000 1240.00 - Lab Results Lab Results: 06/30/20 04:08 06/30/20 04:08 Other Lab Results: Lab Results x24hrs 06/30/20 06/30/20 06/30/20 Range/Units 04:50 04:50 04:50 WBC (4.8-10.8) x10^3/uL RBC (4.20-5.40) 10^6/uL Hgb (12.0-16.0) g/dL Hct (37.0-47.0) % MCV (81.0-99.0) fL MCH (27.0-31.0) pg MCHC (32.0-36.0) g/dL RDW (12.0-15.0) % Plt Count (130-450) 10^3/uL MPV (7.9-10.8) fL Reticulocyte % (Auto) (0.5-2.3) % Neut # (Auto) (1.5-6.6) 10^3/uL Lymph # (Auto) (1.5-3.5) 10^3/uL [place] # (Auto) (0.0-1.0) 10^3/uL Eos # (Auto) (0.0-0.7) 10^3/uL Baso # (Auto) (0.0-0.1) 10^3/uL Absolute Nucleated RBC x10^3/uL Nucleated RBC % /100WBC Absolute Retic (0.020-0.110) 10^6/uL Sodium (135-145) mmol/L Potassium (3.5-5.0) mmol/L Chloride (101-111) mmol/L Carbon Dioxide (21-32) mmol/L Anion Gap (6-13) BUN (6-20) mg/dL Creatinine (0.4-1.0) mg/dL Estimated GFR (MDRD) (>89) Glucose (70-100) mg/dL Calcium (8.5-10.3) mg/dL Iron 10 L (28-170) ug/dL TIBC 206 L (250-450) ug/dL % Saturation 5 L (20-50) % Transferrin 147 L (192-382) mg/dL Ferritin 117.4 (11.0-306.8) ng/mL Lactate Dehydrogenase 140 (91-225) IU/L Vitamin B12 143 L (180-914) pg/mL 06/30/20 06/30/20 06/30/20 Range/Units 04:50 04:08 04:08 WBC 7.4 (4.8-10.8) x10^3/uL RBC 3.21 L 3.27 L (4.20-5.40) 10^6/uL Hgb 9.0 L (12.0-16.0) g/dL Hct 28.7 L (37.0-47.0) % MCV 87.8 (81.0-99.0) fL MCH 27.5 (27.0-31.0) pg MCHC 31.4 L (32.0-36.0) g/dL RDW 14.9 (12.0-15.0) % Plt Count 179 (130-450) 10^3/uL MPV 10.1 (7.9-10.8) fL Reticulocyte % (Auto) 1.30 (0.5-2.3) % Neut # (Auto) 4.9 (1.5-6.6) 10^3/uL Lymph # (Auto) 1.3 L (1.5-3.5) 10^3/uL [place] # (Auto) 1.1 H (0.0-1.0) 10^3/uL Eos # (Auto) 0.0 (0.0-0.7) 10^3/uL Baso # (Auto) 0.0 (0.0-0.1) 10^3/uL Absolute Nucleated RBC 0.00 x10^3/uL Nucleated RBC % 0.0 /100WBC Absolute Retic 0.042 (0.020-0.110) 10^6/uL Sodium 137 (135-145) mmol/L Potassium 2.9 L (3.5-5.0) mmol/L Chloride 102 (101-111) mmol/L Carbon Dioxide 25 (21-32) mmol/L Anion Gap 10.0 (6-13) BUN 13 (6-20) mg/dL Creatinine 0.4 (0.4-1.0) mg/dL Estimated GFR (MDRD) 151 (>89) Glucose 112 H (70-100) mg/dL Calcium 8.2 L (8.5-10.3) mg/dL Iron (28-170) ug/dL TIBC (250-450) ug/dL % Saturation (20-50) % Transferrin (192-382) mg/dL Ferritin (11.0-306.8) ng/mL Lactate Dehydrogenase (91-225) IU/L Vitamin B12 (180-914) pg/mL - Current Medications Current Medications: Current Medications Generic Name Dose Route Start Last Admin Trade Name Marioq PRN Reason Stop Dose Admin Aspirin 81 mg 06/29/20 09:00 06/30/20 08:07 Aspirin Ec 81 Mg Tablet PO 81 mg DAILY AVNI Administration Cholecalciferol 50 mcg 06/30/20 13:00 06/30/20 13:08 Cholecalciferol 25 Mcg Tablet PO 50 mcg DAILY AVNI Administration Donepezil HCl 10 mg 06/29/20 21:00 06/29/20 20:24 Donepezil 5 Mg Tablet PO Not Given QPM AVNI Enoxaparin Sodium 40 mg 06/30/20 09:00 06/30/20 08:19 Enoxaparin 40 Mg/0.4 Ml Syringe SUBQ 40 mg DAILY AVNI Administration Famotidine 20 mg 06/28/20 21:00 06/30/20 08:07 Famotidine 20 Mg Tablet PO 20 mg BID AVNI Administration Lactated Ringer's 1,000 mls @ 75 mls/hr 06/29/20 17:39 06/30/20 07:54 Lr IV 06/30/20 20:18 75 mls/hr .[id number] AVNI Administration Multivitamins/Minerals 1 tab 06/30/20 13:00 06/30/20 13:09 Multivitamin W/Minerals Tablet PO 1 tab DAILYWM AVNI Administration Non-Formulary Medication 10 mg 06/29/20 09:00 06/30/20 08:20 Oxybutynin Chloride [Ditropan Xl] PO Not Given DAILY AVNI Olanzapine 2.5 mg 06/29/20 09:00 06/30/20 08:08 Olanzapine Odt 5 Mg Tablet TL 2.5 mg DAILY AVNI Administration Polyethylene Glycol 17 gm 06/30/20 09:00 06/30/20 08:09 Polyethylene Glycol 3350 17 Gm Packet PO 17 gm DAILY AVNI Administration Potassium Chloride 40 meq 06/30/20 08:00 06/30/20 11:46 Potassium Chloride 20 Meq Tablet PO 06/30/20 17:01 40 meq TIDWM AVNI Administration Sodium Chloride 10 ml 06/28/20 17:00 06/30/20 08:47 Sodium Chloride Flush 0.9% 10 Ml Syringe IVP Not Given 0100,0900,1700 [facility] - Physical Exam Wound/Incisions: positive: Dressing dry and intact ABX Reporting Has patient been on IV antibiotics over the past 48 hours?: No Impression/Plan - Problem List Problem List: Pod#2 Right femur fracture with acute blood loss anemia due to fracture with dementia Plan SNF when ready. Watch H&H- Continue iron. HR stable. Limit narcotic use Follow-up in 2 weeks at outpatient clinic
[2020-06-30] MEDS: ACETAMINOPHEN 500 MG TABLET PO PRN (17:51)
[2020-06-30] MEDS: CALCIUM CARBONATE CHEW 500 MG TABLET PO SCH (20:05)
[2020-06-30] MEDS: DONEPEZIL 5 MG TABLET PO SCH (20:05)
[2020-07-01] MEDS: ACETAMINOPHEN 500 MG TABLET PO PRN ×2 (00:57→16:59)
[2020-07-01 05:20] LABS: BASOPHILS % (AUTO) 0.3 %; EOSINOPHILS % (AUTO) 0.4 %; LYMPHOCYTES # (AUTO) 1.3 10^3/uL (1.5-3.5); LYMPHOCYTES % (AUTO) 16.3 %; MEAN CORPUSCULAR HEMOGLOBIN 27.9 pg (27.0-31.0); MEAN CORPUSCULAR HGB CONC 31.9 g/dL (32.0-36.0); MEAN CORPUSCULAR VOLUME 87.3 fL (81.0-99.0); MEAN PLATELET VOLUME 9.6 fL (7.9-10.8); MONOCYTES # (AUTO) 0.9 10^3/uL (0.0-1.0); MONOCYTES % (AUTO) 11.3 %; NEUTROPHILS # (AUTO) 5.7 10^3/uL (1.5-6.6); NEUTROPHILS % (AUTO) 71.3 %; PLT - PLATELET COUNT 162 10^3/uL (130-450); RED BLOOD COUNT 3.23 10^6/uL (4.20-5.40); RED CELL DISTRIBUTION WIDTH 14.9 % (12.0-15.0)
[2020-07-01 05:27] LABS: CALCIUM 8.6 mg/dL (8.5-10.3); CREATININE 0.4 mg/dL (0.4-1.0)
[2020-07-01] MEDS: FAMOTIDINE 20 MG TABLET PO SCH ×2 (08:27→21:00)
[2020-07-01] MEDS: ASPIRIN EC 81 MG TABLET PO SCH (08:27)
[2020-07-01] MEDS: OLANZapine ODT 5 MG TABLET TL SCH ×2 (08:28→21:01)
[2020-07-01] MEDS: ENOXAPARIN 40 MG/0.4 ML SYRINGE SUBQ SCH (08:29)
[2020-07-01] MEDS: CHOLECALCIFEROL 25 MCG TABLET PO SCH (08:29)
[2020-07-01] MEDS: CALCIUM CARBONATE CHEW 500 MG TABLET PO SCH ×2 (08:29→21:00)
[2020-07-01] MEDS: MULTIVITAMIN W/MINERALS TABLET PO SCH (08:29)
[2020-07-01] MEDS: OXYBUTYNIN CHLORIDE 10 MG PO SCH (08:33)
[2020-07-01] MEDS: polyethylene glycoL 3350 17 GM PACKET PO SCH (08:34)
[2020-07-01] MEDS: FERROUS SULFATE 325 MG TABLET PO SCH (08:46)
[2020-07-01] MEDS: SODIUM CHLORIDE FLUSH 0.9% 10 ML SYRINGE IVP SCH ×2 (08:47→16:59)
--- NOTE | 2020-07-01 13:37 | PROVIDER PROGRESS NOTE ---
Subjective - Prog Note Date Prog Note Date: 07/01/20 - Subjective Subjective: She is pleasantly demented sitting in bed. Current Medications - Current Medications Current Medications: Active Medications Acetaminophen (Acetaminophen 500 Mg Tablet) 500 mg PO Q4HR PRN PRN Reason: Pain or Fever > 38C (100.4F) Last Admin: 07/01/20 00:57 Dose: 500 mg Documented by: Aspirin (Aspirin Ec 81 Mg Tablet) 81 mg PO DAILY [facility] Last Admin: 07/01/20 08:27 Dose: 81 mg Documented by: Calcium Carbonate/Glycine (Calcium Carbonate Chew 500 Mg Tablet) 500 mg PO BID [facility] Last Admin: 07/01/20 08:29 Dose: 500 mg Documented by: Cholecalciferol (Cholecalciferol 25 Mcg Tablet) 50 mcg PO DAILY [facility] Last Admin: 07/01/20 08:29 Dose: 50 mcg Documented by: Docusate Sodium (Docusate Sodium 100 Mg Capsule) 100 mg PO BID PRN PRN Reason: Constipation Last Admin: 07/01/20 08:28 Dose: 100 mg Documented by: Donepezil HCl (Donepezil 5 Mg Tablet) 10 mg PO QPM [facility] Last Admin: 06/30/20 20:05 Dose: 10 mg Documented by: Enoxaparin Sodium (Enoxaparin 40 Mg/0.4 Ml Syringe) 40 mg SUBQ DAILY [facility] Last Admin: 07/01/20 08:29 Dose: 40 mg Documented by: Famotidine (Famotidine 20 Mg Tablet) 20 mg PO BID [facility] Last Admin: 07/01/20 08:27 Dose: 20 mg Documented by: Ferrous Sulfate (Ferrous Sulfate 325 Mg Tablet) 325 mg PO DAILYWM [facility] Last Admin: 07/01/20 08:46 Dose: Not Given Documented by: Hydralazine HCl (Hydralazine Inj 20 Mg/Ml Vial) 10 mg IVP Q4H PRN PRN Reason: Hypertensive Emergency Morphine Sulfate (Morphine 2 Mg/Ml Carpuject) 2 mg IVP Q2HR PRN PRN Reason: PAIN >8 Multivitamins/Minerals (Multivitamin W/Minerals Tablet) 1 tab PO DAILYWM [facility] Last Admin: 07/01/20 08:29 Dose: 1 tab Documented by: Non-Formulary Medication (Oxybutynin Chloride [Ditropan Xl]) 10 mg PO DAILY [facility] Last Admin: 07/01/20 08:33 Dose: Not Given Documented by: Olanzapine (Olanzapine Odt 5 Mg Tablet) 2.5 mg TL QPM [facility] Ondansetron HCl (Ondansetron 4 Mg/2 Ml Vial) 4 mg IVP Q6HR PRN PRN Reason: Nausea / Vomiting Oxycodone HCl (Oxycodone 5 Mg Tablet) 5 mg PO Q4HR PRN PRN Reason: PAIN Polyethylene Glycol (Polyethylene Glycol 3350 17 Gm Packet) 17 gm PO DAILY [facility] Last Admin: 07/01/20 08:34 Dose: 17 gm Documented by: Prochlorperazine Edisylate (Prochlorperazine 10 Mg/2 Ml Vial) 10 mg IVP Q6HR PRN PRN Reason: Nausea / Vomiting Sodium Chloride (Sodium Chloride Flush 0.9% 10 Ml Syringe) 10 ml IVP 0100,0900,1700 [facility] Last Admin: 07/01/20 08:47 Dose: 10 ml Documented by: Sodium Chloride (Sodium Chloride Flush 0.9% 10 Ml Syringe) 10 ml IVP PRN PRN PRN Reason: NEEDED PER PROVIDER ORDERS Donepezil HCl [Aricept] 10 mg PO HS 06/28/20 Furosemide [Lasix] 40 mg PO DAILY 06/28/20 OLANZapine [Zyprexa] 2.5 mg PO QPM 06/28/20 Oxybutynin Chloride [Ditropan Xl] 10 mg PO DAILY 06/28/20 Potassium Chloride 40 meq PO DAILYWM 06/28/20 Cholecalciferol (Vitamin D3) [Vitamin D3] 1,000 unit PO DAILY 06/29/20 Objective - Vital Signs/Intake & Output Reviewed Vital Signs: Yes Vital Signs: Vital Signs x48h Temp Pulse Resp BP Pulse Ox 07/01/20 13:00 37.2 C 81 18 137/54 H 100 07/01/20 08:01 36.9 C 85 16 146/57 H 100 07/01/20 05:51 36.5 C 81 13 135/52 H 98 Intake & Output: Intake & Output 06/28/20 06/29/20 06/30/20 07/01/20 23:59 23:59 23:59 23:59 Intake Total 90 2612.000 2830.00 15 Output Total 2650 1035 75 Balance 90 -38.000 1795.00 -60 - Objective General Appearance: positive: No acute distress, Alert Eyes Bilateral: positive: Normal inspection, Conjunctivae nml ENT: positive: ENT inspection nml Neck: positive: Nml inspection Respiratory: positive: No respiratory distress. negative: Wheezes, Rales Cardiovascular: positive: Regular rate & rhythm. negative: Tachycardia Abdomen: positive: Non-tender, No distention. negative: Tenderness Skin: positive: Warm, Dry Extremities: positive: No pedal edema, Other (Dressing appears dry and intact over the right lower extremity. No surrounding erythema. She does not appear to be in pain on palpation.) Neurologic/Psychiatric: positive: Other (No obvious focal deficits. She does not follow commands) - Lab Results Fish Bones: 07/01/20 05:07 07/01/20 05:07 Other Labs: Lab Results x24hrs 07/01/20 07/01/20 06/30/20 Range/Units 05:07 05:07 15:50 WBC 8.0 (4.8-10.8) x10^3/uL RBC 3.23 L (4.20-5.40) 10^6/uL Hgb 9.0 L (12.0-16.0) g/dL Hct 28.2 L (37.0-47.0) % MCV 87.3 (81.0-99.0) fL MCH 27.9 (27.0-31.0) pg MCHC 31.9 L (32.0-36.0) g/dL RDW 14.9 (12.0-15.0) % Plt Count 162 (130-450) 10^3/uL MPV 9.6 (7.9-10.8) fL Neut # (Auto) 5.7 (1.5-6.6) 10^3/uL Lymph # (Auto) 1.3 L (1.5-3.5) 10^3/uL [place] # (Auto) 0.9 (0.0-1.0) 10^3/uL Eos # (Auto) 0.0 (0.0-0.7) 10^3/uL Baso # (Auto) 0.0 (0.0-0.1) 10^3/uL Absolute Nucleated RBC 0.00 x10^3/uL Nucleated RBC % 0.0 /100WBC Sodium 139 (135-145) mmol/L Potassium 3.8 (3.5-5.0) mmol/L Chloride 103 (101-111) mmol/L Carbon Dioxide 25 (21-32) mmol/L Anion Gap 11.0 (6-13) BUN 15 (6-20) mg/dL Creatinine 0.4 (0.4-1.0) mg/dL Estimated GFR (MDRD) 151 (>89) Glucose 116 H (70-100) mg/dL Calcium 8.6 (8.5-10.3) mg/dL Coronavirus (PCR) NEGATIVE Assessment/Plan - Problem List (1) Right femoral fracture Impression: She is now postop day 3 of a right femoral cephalomedullary nail placement. Her pain appears to be controlled by Tylenol. Given her advanced dementia, she does not appear to be a candidate for assisted facility as she cannot follow commands. She will be discharged back to [facility]. We will continue with Tylenol as needed for pain control. The daytime for yesterday spoke with orthopedic surgery who prefer aspirin 81 mg daily for DVT prophylaxis which will be continued. The plan is to discharge her in 2 days back to [facility] as they cannot take her over the weekend. Qualifiers: Encounter type: initial encounter Femur location: shaft Fracture type: closed Fracture morphology: spiral Fracture alignment: displaced Qualified Code(s): S72.341A - Displaced spiral fracture of shaft of right femur, initial encounter for closed fracture (2) Postoperative anemia Impression: She had postoperative anemia but hemoglobin appears to have stabilized at 9.0. There is no evidence of bleeding. Iron studies were obtained which were suggestive of anemia of chronic disease. We will recheck CBC tomorrow morning. (3) Dementia Impression: She has advanced dementia at baseline. We will continue her home donepezil and zyprexa.
[2020-07-01] MEDS: DONEPEZIL 5 MG TABLET PO SCH (21:00)
[2020-07-02] MEDS: SODIUM CHLORIDE FLUSH 0.9% 10 ML SYRINGE IVP SCH (00:18)
[2020-07-02] MEDS ORDERED: ONDANSETRON ODT 4 MG TABLET TL PRN (00:21)
[2020-07-02] MEDS: MORPHINE SOL 10 MG/0.5 ML ORAL SYRINGE PO PRN ×2 (00:27→11:17)
[2020-07-02 05:41] LABS: BASOPHILS % (AUTO) 0.3 %; EOSINOPHILS # (AUTO) 0.2 10^3/uL (0.0-0.7); EOSINOPHILS % (AUTO) 2.7 %; HGB - HEMOGLOBIN 9.1 g/dL (12.0-16.0); LYMPHOCYTES # (AUTO) 1.6 10^3/uL (1.5-3.5); LYMPHOCYTES % (AUTO) 27.2 %; MEAN CORPUSCULAR HEMOGLOBIN 28.2 pg (27.0-31.0); MEAN CORPUSCULAR HGB CONC 31.8 g/dL (32.0-36.0); MEAN CORPUSCULAR VOLUME 88.5 fL (81.0-99.0); MEAN PLATELET VOLUME 10.1 fL (7.9-10.8); MONOCYTES # (AUTO) 0.7 10^3/uL (0.0-1.0); MONOCYTES % (AUTO) 11.5 %; NEUTROPHILS # (AUTO) 3.5 10^3/uL (1.5-6.6); NEUTROPHILS % (AUTO) 58.1 %; PLT - PLATELET COUNT 198 10^3/uL (130-450); RED BLOOD COUNT 3.23 10^6/uL (4.20-5.40); RED CELL DISTRIBUTION WIDTH 14.8 % (12.0-15.0)
[2020-07-02 05:49] LABS: CALCIUM 8.4 mg/dL (8.5-10.3); CREATININE 0.5 mg/dL (0.4-1.0)
--- NOTE | 2020-07-02 07:32 | PROVIDER PROGRESS NOTE ---
Subjective - Prog Note Date Prog Note Date: 07/02/20 - Subjective Subjective: Remains pleasantly demented. Current Medications - Current Medications Current Medications: Active Medications Acetaminophen (Acetaminophen 500 Mg Tablet) 500 mg PO Q4HR PRN PRN Reason: Pain or Fever > 38C (100.4F) Last Admin: 07/01/20 16:59 Dose: 500 mg Documented by: Aspirin (Aspirin Ec 81 Mg Tablet) 81 mg PO DAILY [facility] Last Admin: 07/02/20 08:36 Dose: 81 mg Documented by: Calcium Carbonate/Glycine (Calcium Carbonate Chew 500 Mg Tablet) 500 mg PO BID [facility] Last Admin: 07/02/20 08:43 Dose: 500 mg Documented by: Cholecalciferol (Cholecalciferol 25 Mcg Tablet) 50 mcg PO DAILY [facility] Last Admin: 07/02/20 08:39 Dose: 50 mcg Documented by: Docusate Sodium (Docusate Sodium 100 Mg Capsule) 100 mg PO BID PRN PRN Reason: Constipation Last Admin: 07/01/20 08:28 Dose: 100 mg Documented by: Donepezil HCl (Donepezil 5 Mg Tablet) 10 mg PO QPM [facility] Last Admin: 07/01/20 21:00 Dose: 10 mg Documented by: Enoxaparin Sodium (Enoxaparin 40 Mg/0.4 Ml Syringe) 40 mg SUBQ DAILY [facility] Last Admin: 07/02/20 08:59 Dose: 40 mg Documented by: Famotidine (Famotidine 20 Mg Tablet) 20 mg PO BID [facility] Last Admin: 07/02/20 08:36 Dose: 20 mg Documented by: Ferrous Sulfate (Ferrous Sulfate 325 Mg Tablet) 325 mg PO DAILYWM [facility] Last Admin: 07/02/20 08:41 Dose: 325 mg Documented by: Morphine Sulfate (Morphine Bhakti 10 Mg/0.5 Ml Oral Syringe) 10 mg PO Q2HR PRN PRN Reason: PAIN Last Admin: 07/02/20 00:27 Dose: 10 mg Documented by: Multivitamins/Minerals (Multivitamin W/Minerals Tablet) 1 tab PO DAILYWM [facility] Last Admin: 07/02/20 08:45 Dose: 1 tab Documented by: Non-Formulary Medication (Oxybutynin Chloride [Ditropan Xl]) 10 mg PO DAILY [facility] Last Admin: 07/02/20 09:52 Dose: Not Given Documented by: Olanzapine (Olanzapine Odt 5 Mg Tablet) 2.5 mg TL QPM [facility] Last Admin: 07/01/20 21:01 Dose: 2.5 mg Documented by: Ondansetron HCl (Ondansetron Odt 4 Mg Tablet) 4 mg TL Q4HR PRN PRN Reason: Nausea / Vomiting Oxycodone HCl (Oxycodone 5 Mg Tablet) 5 mg PO Q4HR PRN PRN Reason: PAIN Polyethylene Glycol (Polyethylene Glycol 3350 17 Gm Packet) 17 gm PO DAILY [facility] Last Admin: 07/02/20 08:45 Dose: 17 gm Documented by: Prochlorperazine Edisylate (Prochlorperazine 10 Mg/2 Ml Vial) 10 mg IVP Q6HR PRN PRN Reason: Nausea / Vomiting Donepezil HCl [Aricept] 10 mg PO HS 06/28/20 Furosemide [Lasix] 40 mg PO DAILY 06/28/20 OLANZapine [Zyprexa] 2.5 mg PO QPM 06/28/20 Oxybutynin Chloride [Ditropan Xl] 10 mg PO DAILY 06/28/20 Potassium Chloride 40 meq PO DAILYWM 06/28/20 Cholecalciferol (Vitamin D3) [Vitamin D3] 1,000 unit PO DAILY 06/29/20 Objective - Vital Signs/Intake & Output Reviewed Vital Signs: Yes Vital Signs: Vital Signs x48h Temp Pulse Resp BP Pulse Ox 07/02/20 00:24 36.5 C 82 14 124/58 L 99 Intake & Output: Intake & Output 06/29/20 06/30/20 07/01/20 07/02/20 23:59 23:59 23:59 23:59 Intake Total 2612.000 2830.00 235 Output Total 2650 1035 275 0 Balance -38.000 1795.00 -40 0 - Objective General Appearance: positive: No acute distress, Alert Eyes Bilateral: positive: Normal inspection ENT: positive: ENT inspection nml Neck: positive: Nml inspection Respiratory: positive: No respiratory distress. negative: Wheezes, Rales Cardiovascular: positive: Regular rate & rhythm. negative: Tachycardia Skin: positive: Warm, Dry Extremities: positive: Other (Dressings in place over the right lower extremity without surrounding erythema.) Neurologic/Psychiatric: positive: Other (She is demented and does not follow commands.) - Lab Results Fish Bones: 02/21/21 05:19 07/02/20 05:19 Other Labs: Lab Results x24hrs 07/02/20 07/02/20 06/30/20 Range/Units 05:19 05:19 15:50 WBC 6.0 (4.8-10.8) x10^3/uL RBC 3.23 L (4.20-5.40) 10^6/uL Hgb 9.1 L (12.0-16.0) g/dL Hct 28.6 L (37.0-47.0) % MCV 88.5 (81.0-99.0) fL MCH 28.2 (27.0-31.0) pg MCHC 31.8 L (32.0-36.0) g/dL RDW 14.8 (12.0-15.0) % Plt Count 198 (130-450) 10^3/uL MPV 10.1 (7.9-10.8) fL Neut # (Auto) 3.5 (1.5-6.6) 10^3/uL Lymph # (Auto) 1.6 (1.5-3.5) 10^3/uL [place] # (Auto) 0.7 (0.0-1.0) 10^3/uL Eos # (Auto) 0.2 (0.0-0.7) 10^3/uL Baso # (Auto) 0.0 (0.0-0.1) 10^3/uL Absolute Nucleated RBC 0.00 x10^3/uL Nucleated RBC % 0.0 /100WBC Sodium 141 (135-145) mmol/L Potassium 3.6 (3.5-5.0) mmol/L Chloride 104 (101-111) mmol/L Carbon Dioxide 26 (21-32) mmol/L Anion Gap 11.0 (6-13) BUN 17 (6-20) mg/dL Creatinine 0.5 (0.4-1.0) mg/dL Estimated GFR (MDRD) 117 (>89) Glucose 96 (70-100) mg/dL Calcium 8.4 L (8.5-10.3) mg/dL Coronavirus (PCR) NEGATIVE Assessment/Plan - Problem List (1) Right femoral fracture Impression: She is now postop day 4 of a right femoral cephalomedullary nail placement. Appears to be doing well from a pain perspective with Tylenol as needed. She will be discharged tomorrow back to [facility]. She is not a candidate for skilled nurse facility given her advanced dementia and inability to follow commands. Continue with Tylenol for pain control. Aspirin 81 mg for DVT prophylaxis per orthopedic surgery. Qualifiers: Encounter type: initial encounter Femur location: shaft Fracture type: closed Fracture morphology: spiral Fracture alignment: displaced Qualified Code(s): S72.341A - Displaced spiral fracture of shaft of right femur, initial encounter for closed fracture (2) Postoperative anemia Impression: Her hemoglobin has stabilized at 9 postoperatively. There has been no evidence of bleeding. Her iron studies are suggestive of anemia of chronic disease. (3) Dementia Impression: She has advanced dementia and is currently at baseline. Continue donepezil and zyprexa.
[2020-07-02] MEDS: ASPIRIN EC 81 MG TABLET PO SCH (08:36)
[2020-07-02] MEDS: FAMOTIDINE 20 MG TABLET PO SCH ×3 (08:36→22:22)
[2020-07-02] MEDS: CHOLECALCIFEROL 25 MCG TABLET PO SCH (08:39)
[2020-07-02] MEDS: FERROUS SULFATE 325 MG TABLET PO SCH (08:41)
[2020-07-02] MEDS: CALCIUM CARBONATE CHEW 500 MG TABLET PO SCH ×3 (08:43→22:22)
[2020-07-02] MEDS: polyethylene glycoL 3350 17 GM PACKET PO SCH (08:45)
[2020-07-02] MEDS: MULTIVITAMIN W/MINERALS TABLET PO SCH (08:45)
[2020-07-02] MEDS: ENOXAPARIN 40 MG/0.4 ML SYRINGE SUBQ SCH (08:59)
[2020-07-02] MEDS: OXYBUTYNIN CHLORIDE 10 MG PO SCH (09:52)
--- NOTE | 2020-07-02 10:28 | PROVIDER PROGRESS NOTE ---
Subjective - Prog Note Date Prog Note Date: 07/02/20 Objective - Vital Signs/Intake & Output Vital Signs: Vital Signs x48h Temp Pulse Resp BP Pulse Ox 07/02/20 09:15 36.8 C 81 18 142/54 H 100 Intake & Output: Intake & Output 06/29/20 06/30/20 07/01/20 07/02/20 23:59 23:59 23:59 23:59 Intake Total 2612.000 2830.00 235 110 Output Total 2650 1035 275 0 Balance -38.000 1795.00 -40 110 - Lab Results Fish Bones: 07/02/20 05:19 07/02/20 05:19 Other Labs: Lab Results x24hrs 07/02/20 07/02/20 06/30/20 Range/Units 05:19 05:19 15:50 WBC 6.0 (4.8-10.8) x10^3/uL RBC 3.23 L (4.20-5.40) 10^6/uL Hgb 9.1 L (12.0-16.0) g/dL Hct 28.6 L (37.0-47.0) % MCV 88.5 (81.0-99.0) fL MCH 28.2 (27.0-31.0) pg MCHC 31.8 L (32.0-36.0) g/dL RDW 14.8 (12.0-15.0) % Plt Count 198 (130-450) 10^3/uL MPV 10.1 (7.9-10.8) fL Neut # (Auto) 3.5 (1.5-6.6) 10^3/uL Lymph # (Auto) 1.6 (1.5-3.5) 10^3/uL [place] # (Auto) 0.7 (0.0-1.0) 10^3/uL Eos # (Auto) 0.2 (0.0-0.7) 10^3/uL Baso # (Auto) 0.0 (0.0-0.1) 10^3/uL Absolute Nucleated RBC 0.00 x10^3/uL Nucleated RBC % 0.0 /100WBC Sodium 141 (135-145) mmol/L Potassium 3.6 (3.5-5.0) mmol/L Chloride 104 (101-111) mmol/L Carbon Dioxide 26 (21-32) mmol/L Anion Gap 11.0 (6-13) BUN 17 (6-20) mg/dL Creatinine 0.5 (0.4-1.0) mg/dL Estimated GFR (MDRD) 117 (>89) Glucose 96 (70-100) mg/dL Calcium 8.4 L (8.5-10.3) mg/dL Coronavirus (PCR) NEGATIVE
--- NOTE | 2020-07-02 10:29 | PROVIDER PROGRESS NOTE ---
Subjective - General Admit Date: 06/28/20 Procedure Date: 06/28/20 Post Op Days: 4 Procedure Performed: Right femur IM nail - Review of Systems Wound/Incisions: positive: Dressing dry and intact Functional Status: positive: 1, 2, 3, 4 General: positive: No symptoms, Other (Pleasantly confused) HEENT: positive: No symptoms Pulmonary: positive: No symptoms Cardiovascular: positive: No symptoms Gastrointestinal: positive: No symptoms Genitourinary: positive: No symptoms Musculoskeletal: positive: Other (dressing CDI, thigh soft) Skin: positive: No symptoms Psychiatric: positive: No symptoms All Other Systems: positive: Reviewed and negative - Other Other Information/Narrative: no change in plan or exam Objective - Patient Data Vital Signs: Vital Signs x48h Temp Pulse Resp BP Pulse Ox 07/02/20 09:15 36.8 C 81 18 142/54 H 100 Intake & Output: Intake and Output Totals x24h 06/30/20 07/01/20 07/02/20 23:59 23:59 23:59 Intake Total 2830.00 235 110 Output Total 1035 275 0 Balance 1795.00 -40 110 - Lab Results Lab Results: 07/02/20 05:19 07/02/20 05:19 Other Lab Results: Lab Results x24hrs 07/02/20 07/02/20 06/30/20 Range/Units 05:19 05:19 15:50 WBC 6.0 (4.8-10.8) x10^3/uL RBC 3.23 L (4.20-5.40) 10^6/uL Hgb 9.1 L (12.0-16.0) g/dL Hct 28.6 L (37.0-47.0) % MCV 88.5 (81.0-99.0) fL MCH 28.2 (27.0-31.0) pg MCHC 31.8 L (32.0-36.0) g/dL RDW 14.8 (12.0-15.0) % Plt Count 198 (130-450) 10^3/uL MPV 10.1 (7.9-10.8) fL Neut # (Auto) 3.5 (1.5-6.6) 10^3/uL Lymph # (Auto) 1.6 (1.5-3.5) 10^3/uL [place] # (Auto) 0.7 (0.0-1.0) 10^3/uL Eos # (Auto) 0.2 (0.0-0.7) 10^3/uL Baso # (Auto) 0.0 (0.0-0.1) 10^3/uL Absolute Nucleated RBC 0.00 x10^3/uL Nucleated RBC % 0.0 /100WBC Sodium 141 (135-145) mmol/L Potassium 3.6 (3.5-5.0) mmol/L Chloride 104 (101-111) mmol/L Carbon Dioxide 26 (21-32) mmol/L Anion Gap 11.0 (6-13) BUN 17 (6-20) mg/dL Creatinine 0.5 (0.4-1.0) mg/dL Estimated GFR (MDRD) 117 (>89) Glucose 96 (70-100) mg/dL Calcium 8.4 L (8.5-10.3) mg/dL Coronavirus (PCR) NEGATIVE - Current Medications Current Medications: Current Medications Generic Name Dose Route Start Last Admin Trade Name Freq PRN Reason Stop Dose Admin Acetaminophen 500 mg 06/30/20 14:00 07/01/20 16:59 Acetaminophen 500 Mg Tablet PO 500 mg Q4HR PRN Administration Pain or Fever > 38C (100.4F) Aspirin 81 mg 06/29/20 09:00 07/02/20 08:36 Aspirin Ec 81 Mg Tablet PO 81 mg DAILY [facility] Administration Calcium Carbonate/Glycine 500 mg 06/30/20 21:00 07/02/20 08:43 Calcium Carbonate Chew 500 Mg Tablet PO 500 mg BID [facility] Administration Cholecalciferol 50 mcg 06/30/20 13:00 07/02/20 08:39 Cholecalciferol 25 Mcg Tablet PO 50 mcg DAILY [facility] Administration Docusate Sodium 100 mg 06/28/20 18:40 07/01/20 08:28 Docusate Sodium 100 Mg Capsule PO 100 mg BID PRN Administration Constipation Donepezil HCl 10 mg 06/29/20 21:00 07/01/20 21:00 Donepezil 5 Mg Tablet PO 10 mg QPM [facility] Administration Enoxaparin Sodium 40 mg 06/30/20 09:00 07/02/20 08:59 Enoxaparin 40 Mg/0.4 Ml Syringe SUBQ 40 mg DAILY [facility] Administration Famotidine 20 mg 06/28/20 21:00 07/02/20 08:36 Famotidine 20 Mg Tablet PO 20 mg BID [facility] Administration Ferrous Sulfate 325 mg 07/01/20 08:00 07/02/20 08:41 Ferrous Sulfate 325 Mg Tablet PO 325 mg DAILYWM [facility] Administration Morphine Sulfate 10 mg 07/02/20 00:21 07/02/20 00:27 Morphine Bhakti 10 Mg/0.5 Ml Oral Syringe PO 10 mg Q2HR PRN Administration PAIN Multivitamins/Minerals 1 tab 06/30/20 13:00 07/02/20 08:45 Multivitamin W/Minerals Tablet PO 1 tab DAILYWM [facility] Administration Non-Formulary Medication 10 mg 06/29/20 09:00 07/02/20 09:52 Oxybutynin Chloride [Ditropan Xl] PO Not Given DAILY [facility] Olanzapine 2.5 mg 07/01/20 21:00 07/01/20 21:01 Olanzapine Odt 5 Mg Tablet TL 2.5 mg QPM [facility] Administration Polyethylene Glycol 17 gm 06/30/20 09:00 07/02/20 08:45 Polyethylene Glycol 3350 17 Gm Packet PO 17 gm DAILY [facility] Administration
[2020-07-02] MEDS: DONEPEZIL 5 MG TABLET PO SCH ×2 (22:15→22:22)
[2020-07-02] MEDS: OLANZapine ODT 5 MG TABLET TL SCH ×2 (22:15→22:22)
[2020-07-03 05:26] LABS: BASOPHILS % (AUTO) 0.3 %; EOSINOPHILS # (AUTO) 0.1 10^3/uL (0.0-0.7); EOSINOPHILS % (AUTO) 1.9 %; HGB - HEMOGLOBIN 9.9 g/dL (12.0-16.0); LYMPHOCYTES # (AUTO) 1.6 10^3/uL (1.5-3.5); LYMPHOCYTES % (AUTO) 21.9 %; MEAN CORPUSCULAR HEMOGLOBIN 28.1 pg (27.0-31.0); MEAN CORPUSCULAR VOLUME 87.8 fL (81.0-99.0); MEAN PLATELET VOLUME 9.4 fL (7.9-10.8); MONOCYTES # (AUTO) 0.8 10^3/uL (0.0-1.0); MONOCYTES % (AUTO) 10.7 %; NEUTROPHILS # (AUTO) 4.8 10^3/uL (1.5-6.6); NEUTROPHILS % (AUTO) 64.8 %; PLT - PLATELET COUNT 261 10^3/uL (130-450); RED BLOOD COUNT 3.52 10^6/uL (4.20-5.40); RED CELL DISTRIBUTION WIDTH 14.7 % (12.0-15.0); WHITE BLOOD COUNT 7.4 x10^3/uL (4.8-10.8)
[2020-07-03 05:39] LABS: CALCIUM 8.6 mg/dL (8.5-10.3); CREATININE 0.4 mg/dL (0.4-1.0)
[2020-07-03] MEDS ORDERED: POTASSIUM CHLORIDE 20 MEQ TABLET PO ONE (06:42)
--- NOTE | 2020-07-03 07:34 | Discharge Plan ---
"Discharge Plan for SNF / [facility] - Discharge Plan And Transition Orders Problem Reviewed?: Yes Disposition: 03 SNF DC/Xfer Condition: Stable Allergies and Adverse Reactions: Allergies Allergy/AdvReac Type Severity Reaction Status Date / Time No Known Drug Allergies Allergy Verified 06/28/20 05:39 Health Concerns: She was admitted for a fracture of her right femur. She underwent nail placement with orthopedic surgery shortly after admission. She had postoperative anemia but her hemoglobin has since been stable without evidence of bleeding. She was evaluated by physical therapy but unfortunately due to her advanced dementia, she is not a candidate for correction facility as she cannot follow commands. She will be discharged back to [facility]. She will continue with Tylenol as needed for pain control as this appears to be controlling her pain quite well. She will be on aspirin 81 mg daily for DVT prophylaxis per orthopedic surgery. Plan of Treatment: She will need to follow-up with orthopedic surgery in 2 weeks. - SNF / [facility] Transition Orders Admit to (Facility): [facility] Discharge Diagnosis: Right femoral fracture - stable. Postoperative anemia - stable. Dementia - stable. Medicare Certification Statement: I certify that Post Hospital correction care is medically necessary on a continuing basis for any of the conditions for which she/he is receiving care during hospitalization. Notify PCP of admission and forward orders to primary provider for signature. Other Notification Orders: Call PCP immediately if patient develops dyspnea, chest pain/tightness or edema. Additional Bowel Program Orders: If no BM after 2 days, nurse may give M.O.M. 30ml PO PRN and/or ducolax Supp 1 MA and/or SARAH 250mg P.O., and/or senna 1-2 tabs PO. On day 3 nurse may give repeat above order until residents constipation is resolved. Orthopedic Orders: Weightbearing as tolerated in the right lower extremity. Medication Orders: PLEASE REFER TO THE DISCHARGE MEDICATION LIST. - Medications New Prescriptions: Acetaminophen [Acetaminophen Extra Strength] 1,000 mg PO TID PRN #60 tab PRN Reason: Pain Aspirin EC [Ecotrin] 81 mg PO DAILY #30 tab Calcium Carbonate [Tums (Calcium Carbonate 500mg)] 500 mg PO BID #60 tab Cholecalciferol [Vitamin D3] 50 mcg PO DAILY #30 tab - Diet Type: Geriatric Texture: Regular Liquids: Thin - Therapies | Activity Activity: Wt Bearing as Tolerated"
--- NOTE | 2020-07-03 07:40 | DISCHARGE SUMMARY ---
"Discharge Summary Admit Date: 06/28/20 Discharge Date: 07/03/20 Discharging Provider: Jaret Sparks Primary Care Provider: Martha Malone Code Status: Do Not Attempt Resuscitation Condition at Discharge: Stable Discharge Disposition: SNF DC/Xfer Discharge Facility Name: [facility] - DIAGNOSES Admission Diagnoses: Right femoral fracture Dementia Urinary incontinence Hypertension Hypokalemia Discharge Diagnoses with Status of Each Condition: Right femoral fracture - stable. Postoperative anemia - stable. Dementia - stable. - HPI History of Present Illness: H&P per MARY Wright: This is a 85-year-old female with past medical history significant for dementia, urinary incontinence, she is living at [facility] in [place].Per ER report, Unfortunately patient could not provide any H&P due to her advanced dementia. Per ER report, staff in [facility] reported patient was noted to be no abnormality detected at approximately 1 AM on routine check by [facility] staff. At approximately 4 AM this morning, patient was again checked as per routine, pt was found to have swelling of right lower extremity, and pain by right leg movement. There was no report for recent injury or fall. Patient's routine laboratory test show patient had potassium 3.2 Otherwise unremarkable. In ER, Patient is afebrile, patient initially had hypertension, now her blood pressure become controlled. Pt was directly from ER to operation room. Medical team was consulted for medical management of S/P of right hip repair. New PLOST show DNR/DNI with Limited intervention. - CONSULTS | PROCEDURES Consultations: Orthopedic Surgery, PT, Social Work Procedures: She underwent right femoral cephalomedullary nail placement on 06/28/20. - HOSPITAL COURSE Hospital Course: She was admitted for a fracture of her right femur. She underwent nail placement with orthopedic surgery shortly after admission. She had postoperative anemia but her hemoglobin has since been stable without evidence of bleeding. She was evaluated by physical therapy but unfortunately due to her advanced dementia, she is not a candidate for residential facility as she cannot follow commands. She will be discharged back to [facility]. She will continue with Tylenol as needed for pain control as this appears to be controlling her pain quite well. She will be on aspirin 81 mg daily for DVT prophylaxis per orthopedic surgery. - ALLERGIES Allergies/Adverse Reactions: Allergies Allergy/AdvReac Type Severity Reaction Status Date / Time No Known Drug Allergies Allergy Verified 06/28/20 05:39 - MEDICATIONS Home Medications: Ambulatory Orders Medication Instructions Recorded Confirmed Donepezil HCl [Aricept] 10 mg PO HS 06/28/20 06/29/20 Furosemide [Lasix] 40 mg PO DAILY 06/28/20 06/29/20 OLANZapine [Zyprexa] 2.5 mg PO QPM 06/28/20 06/29/20 Oxybutynin Chloride [Ditropan Xl] 10 mg PO DAILY 06/28/20 06/29/20 Potassium Chloride 40 meq PO DAILYWM 06/28/20 06/29/20 Acetaminophen [Acetaminophen Extra 1,000 mg PO TID PRN #60 tab 07/03/20 Strength] Aspirin EC [Ecotrin] 81 mg PO DAILY #30 tab 07/03/20 Calcium Carbonate [Tums (Calcium 500 mg PO BID #60 tab 07/03/20 Carbonate 500mg)] Cholecalciferol [Vitamin D3] 50 mcg PO DAILY #30 tab 07/03/20 - PHYSICAL EXAM AT DISCHARGE General Appearance: positive: No acute distress, Alert, Other (She is in no acute distress but is very restless and picking at things in bed.) Eyes Bilateral: positive: Normal inspection, Conjunctivae nml ENT: positive: ENT inspection nml Neck: positive: Nml inspection Respiratory: positive: No respiratory distress. negative: Wheezes, Rales Cardiovascular: positive: Regular rate & rhythm, No murmur. negative: Tachycardia Abdomen: positive: Non-tender, No distention. negative: Tenderness Skin: positive: Warm, Dry Extremities: positive: Pedal edema (Trace edema in the right lower extremity.), Other (Dressing is in place over the right lower extremity without surrounding erythema. No tenderness on palpation.) Neurologic/Psychiatric: positive: Other. negative: Disoriented to person, Disoriented to place, Disoriented to time Physical Exam Other/Comments: Vital Signs - 24 hr 07/02/20 07/03/20 07/03/20 16:19 01:09 09:59 Temperature 37.2 C 37.3 C 36.8 C Heart Rate [ 87 86 78 Brachial] Respiratory 20 16 17 Rate Blood Pressure 155/50 H [Left Brachial artery] Blood Pressure 138/59 H 119/82 H [Right Brachial artery] O2 Saturation 98 98 99 Oxygen O2 Source Room air - LABS Result Diagrams: 07/03/20 05:19 07/03/20 05:19 - DIAGNOSTIC IMAGING Diagnostic Imaging Results: Final report reviewed - FOLLOW UP Follow Up: She will need follow-up with orthopedic surgery in 2 weeks. - TIME SPENT Time Spent in Discharge (Minutes): 32"
[2020-07-03] MEDS ORDERED: POTASSIUM CHLORIDE 20 MEQ TABLET PO SCH (08:00)
--- NOTE | 2020-07-03 08:37 | POST OP PROGRESS NOTE ---
Subjective - General Admit Date: 06/28/20 Procedure Date: 06/28/20 Post Op Days: 5 Procedure Performed: Right femur IM nail - Review of Systems Wound/Incisions: positive: Dressing dry and intact, No drainage (Discharge today) Functional Status: positive: 1, 2, 3, 4 General: positive: No symptoms, Other (Pleasantly confused) HEENT: positive: No symptoms Pulmonary: positive: No symptoms Cardiovascular: positive: No symptoms Gastrointestinal: positive: No symptoms Genitourinary: positive: No symptoms Musculoskeletal: positive: Other (dressing CDI, thigh soft) Skin: positive: No symptoms Psychiatric: positive: No symptoms All Other Systems: positive: Reviewed and negative
[2020-07-03] MEDS ORDERED: SENNA 8.6 MG TABLET PO SCH (09:00)
[2020-07-03] MEDS ORDERED: DOCUSATE SODIUM 250 MG CAPSULE PO SCH (09:00)
[2020-07-03] MEDS: polyethylene glycoL 3350 17 GM PACKET PO SCH (09:48)
[2020-07-03] MEDS: ACETAMINOPHEN 500 MG TABLET PO PRN (09:49)
[2020-07-03] MEDS: CHOLECALCIFEROL 25 MCG TABLET PO SCH (09:49)
[2020-07-03] MEDS: CALCIUM CARBONATE CHEW 500 MG TABLET PO SCH (09:50)
[2020-07-03] MEDS: MULTIVITAMIN W/MINERALS TABLET PO SCH (09:50)
[2020-07-03] MEDS: ENOXAPARIN 40 MG/0.4 ML SYRINGE SUBQ SCH (09:50)
[2020-07-03] MEDS: FERROUS SULFATE 325 MG TABLET PO SCH (09:50)
[2020-07-03] MEDS: FAMOTIDINE 20 MG TABLET PO SCH (09:50)
[2020-07-03] MEDS: ASPIRIN EC 81 MG TABLET PO SCH (09:50)
[2020-07-03] MEDS: OXYBUTYNIN CHLORIDE 10 MG PO SCH (09:51)
[2020-07-03 10:00] VITALS: BP 155/50
== END 2020-07-03 12:25 | DRG 481 ==
LOC: ED 05:14 → SDS 13:31 → MS2 13:32
PROVIDERS: ADMIT Nurse Practitioner Gerontology; ATTEND Internal Medicine
PROC: 0QS806Z Reposition Right Femoral Shaft with Intramedullary Internal Fixation Device, Open Approach (ICD-10-PCS; principal; 2020-06-28 13:30)
DX: S72.341A Displaced spiral fracture of shaft of right femur, initial encounter for closed fracture (principal); D62 Acute posthemorrhagic anemia; W19.XXXA Unspecified fall, initial encounter; Y92.122 Bedroom in nursing home as the place of occurrence of the external cause; F03.90 Unspecified dementia, unspecified severity, without behavioral disturbance, psychotic disturbance, mood disturbance, and anxiety; R32 Unspecified urinary incontinence; Z66 Do not resuscitate; A80.9 Acute poliomyelitis, unspecified; I10 Essential (primary) hypertension; E87.6 Hypokalemia; Z20.822 Contact with and (suspected) exposure to COVID-19
CPT/HCPCS: 36415; 73502; 80048; 80053; 82607; 82728; 83540; 83615; 83690; 84466; 84484; 85014; 85018; 85025; 85045; 87631; 96374; 96376; 97161; 97166; 97530; 99281; 99285; A9270; J0131; J0690; J1650; J3490; J7120; U0004; 0202U

== ENCOUNTER 2020-07-03 12:28 | Outpatient (CLI) | payer MEDICARE, OTHER | END 2020-07-03 12:29 | disposition home or self-care (01) | LOC: EMS 12:28 | DX: S72.001D Fracture of unspecified part of neck of right femur, subsequent encounter for closed fracture with routine healing (principal); F03.90 Unspecified dementia, unspecified severity, without behavioral disturbance, psychotic disturbance, mood disturbance, and anxiety; Z74.01 Bed confinement status; W18.30XD Fall on same level, unspecified, subsequent encounter | CPT/HCPCS: A0425; A0428 ==

== ENCOUNTER 2020-08-24 08:04 | Outpatient (CLI) | payer MEDICARE, OTHER ==
--- NOTE | 2020-08-24 16:45 | XRAY Report ---
PROCEDURE: Hip w/Pelvis 1V RT INDICATIONS: RIGHT FEMUR FRACTURE TECHNIQUE: AP pelvis with lateral view(s) of the bilateral hip(s). COMPARISON: None. FINDINGS: Bones: Postsurgical changes compatible with ORIF of right femur fracture. Dynamic compression screw a nd intramedullary miguel is in place for ORIF of right femur fracture. There is near-anatomic alignment following ORIF. Soft tissues: The visualized bowel gas pattern is normal. No suspicious soft tissue calcifications. IMPRESSION: Near-anatomic alignment of right femur fracture following ORIF. Reviewed by: Charleen Meléndez MD, PhD on 08/24/2020 4:43 PM PDT Approved by: Charleen Meléndez MD, PhD on 08/24/2020 4:43 PM PDT Station ID: [id number]
== END 2020-08-24 23:59 | disposition home or self-care (01) ==
LOC: DI.N 08:04
PROVIDERS: ATTEND Physician Assistant
DX: S72.91XD Unspecified fracture of right femur, subsequent encounter for closed fracture with routine healing (principal)